=== PATIENT | female | born 1935 | race Caucasian/White ===

== ENCOUNTER 2018-02-21 09:52 | Inpatient (IN) | payer BC, MEDICARE ==
--- NOTE | 2018-02-21 10:18 | ED ---
Altered Mental Status HPI - General Chief Complaint: Altered Mental Status Stated Complaint: confusion Time Seen by Provider: 02/21/18 09:58 Source: patient, family, RN notes reviewed, old records reviewed Mode of arrival: ambulatory Limitations: no limitations - History of Present Illness Initial Comments: This is an 82-year-old female the ER for eversion of altered mental status. Patient is deferring the family for history taking, family states the patient is not been appropriate. States she had a good Thanksgiving for the most part per the family and then towards Became very altered and confused. Patient continues remain the same. 90 fever, she has been recently taking increased doses of antipsychotics and depression medication for dementia versus depression. For the family don't seem to really be helping. Today she is isn' t been herself not answering questions appropriately, patient tries to leave the house without appropriate winter) MD Complaint: altered mental status, confusion -: month(s) Severity: moderate Consistency of Symptoms: waxing and waning, getting worse Context: COPD Associated Symptoms: cough, seizure, shortness of breath, weakness - Related Data Home Medications Medication Instructions Recorded Confirmed Aspirin [Adult Low Dose Aspirin EC] 81 mg PO DAILY 02/11/17 02/21/18 Atorvastatin [Lipitor] 40 mg PO HS 02/21/18 02/21/18 Budesonide [Pulmicort] 0.5 mg INHALATION RT-BID 02/21/18 02/21/18 Cyanocobalamin (Vitamin B-12) 1,000 mcg PO DAILY 02/21/18 02/21/18 [Vitamin B-12] Ipratropium Nebulized [Atrovent 0.5 mg INHALATION RT-Q4H PRN 02/21/18 02/21/18 Nebulized] MORPHINE ORAL GARY 2mg/mL [Morphine 10 mg PO Q6H 02/21/18 02/21/18 Oral Soln 2 MG/ML] Metoprolol Succinate [Toprol XL] 25 mg PO DAILY 02/21/18 02/21/18 QUEtiapine [SEROquel] 100 mg PO QAM 02/21/18 02/21/18 QUEtiapine [SEROquel] 200 mg PO HS 02/21/18 02/21/18 clonazePAM [KlonoPIN] 0.5 mg PO HS 02/21/18 02/21/18 Previous Rx's Medication Instructions Recorded Clopidogrel [Plavix] 75 mg PO DAILY #30 tab 02/04/14 Allergies Allergy/AdvReac Type Severity Reaction Status Date / Time No Known Allergies Allergy Verified 02/21/18 10:32 Review of Systems ROS Statement: Those systems with pertinent positive or pertinent negative responses have been documented in the HPI. ROS Other: All systems not noted in ROS Statement are negative. Past Medical History Past Medical History: Coronary Artery Disease (CAD), Heart Failure, Hearing Disorder / Deafness, Vascular Disorder Additional Past Medical History / Comment(s): varicose veins, poor circulation in legs, PAD. EDEMA RT LOWER LEG, NT IN FEET OCC; USES CANE OCC. USES O2 @ HS , UNSURE OF AMT. History of Any Multi-Drug Resistant Organisms: None Reported Past Surgical History: Appendectomy, Section, Heart Catheterization With Stent, Hysterectomy, Orthopedic Surgery, Tonsillectomy Additional Past Surgical History / Comment(s): left knee surgery. 02-03-14 PTBA, illiac stent X2 placed. Past Anesthesia/Blood Transfusion Reactions: No Reported Reaction Date of Last Stent Placement:: 12-30-13 Past Psychological History: Anxiety Smoking Status: Current every day smoker - Past Family History Sister(s) Family Medical History: Cancer Additional Family Medical History / Comment(s): SISTER PANCREATIC Brother(s) Family Medical History: Cancer Additional Family Medical History / Comment(s): BRAIN General Exam Limitations: altered mental status General appearance: alert, in no apparent distress Head exam: Present: atraumatic, normocephalic, normal inspection Eye exam: Present: normal appearance, PERRL, EOMI. Absent: scleral icterus, conjunctival injection, periorbital swelling ENT exam: Present: normal exam, mucous membranes moist Neck exam: Present: normal inspection. Absent: tenderness, meningismus, lymphadenopathy Respiratory exam: Present: normal lung sounds bilaterally. Absent: respiratory distress, wheezes, rales, rhonchi, stridor Cardiovascular Exam: Present: regular rate, normal rhythm, normal heart sounds. Absent: systolic murmur, diastolic murmur, rubs, gallop, clicks GI/Abdominal exam: Present: soft, normal bowel sounds. Absent: distended, tenderness, guarding, rebound, rigid Extremities exam: Present: normal inspection, full ROM, normal capillary refill. Absent: tenderness, pedal edema, joint swelling, calf tenderness Back exam: Present: normal inspection Neurological exam: Present: alert, oriented X3, CN II-XII intact Psychiatric exam: Present: normal affect, normal mood Skin exam: Present: warm, dry, intact, normal color. Absent: rash Course Vital Signs 02/21/18 02/21/18 02/21/18 09:54 10:30 11:00 Temperature 98.9 F Pulse Rate 102 H 91 Respiratory 26 H 17 16 Rate Blood Pressure 143/79 155/70 137/80 O2 Sat by Pulse 95 97 98 Oximetry 02/21/18 11:30 Temperature Pulse Rate 65 Respiratory 18 Rate Blood Pressure 138/64 O2 Sat by Pulse Oximetry - Reevaluation(s) Reevaluation #1: 02/21/18 12:27 Medical record is reviewed Reevaluation #2: 02/21/18 12:27 Patient has no specific change in symptoms Medical Decision Making - Medical Decision Making 81-year-old female the ER for evaluation of altered mental status, patient comes in for that x-ray appropriately, dementia versus delirium versus depression. Patient will be admitted for neurological and psychiatric evaluation - Lab Data Result diagrams: 02/21/18 10:20 02/21/18 10:20 Lab Results 02/21/18 02/21/18 02/21/18 Range/Units 10:20 10:20 10:20 WBC 6.9 (3.8-10.6) k/uL RBC 3.55 L (3.80-5.40) m/uL Hgb 10.7 L (11.4-16.0) gm/dL Hct 32.9 L (34.0-46.0) % MCV 92.6 (80.0-100.0) fL MCH 30.0 (25.0-35.0) pg MCHC 32.4 (31.0-37.0) g/dL RDW 13.7 (11.5-15.5) % Plt Count 237 (150-450) k/uL Neutrophils % 71 % Lymphocytes % 17 % Monocytes % 5 % Eosinophils % 3 % Basophils % 1 % Neutrophils # 4.9 (1.3-7.7) k/uL Lymphocytes # 1.1 (1.0-4.8) k/uL Monocytes # 0.4 (0-1.0) k/uL Eosinophils # 0.2 (0-0.7) k/uL Basophils # 0.0 (0-0.2) k/uL PT (9.0-12.0) sec INR (<1.2) APTT (22.0-30.0) sec Sodium (137-145) mmol/L Potassium (3.5-5.1) mmol/L Chloride (98-107) mmol/L Carbon Dioxide (22-30) mmol/L Anion Gap mmol/L BUN (7-17) mg/dL Creatinine (0.52-1.04) mg/dL Est GFR (CKD-EPI)AfAm (>60 ml/min/1.73 sqM) Est GFR (CKD-EPI)NonAf (>60 ml/min/1.73 sqM) Glucose (74-99) mg/dL POC Glucose (mg/dL) (75-99) mg/dL POC Glu Deep Submergence Vehicle Operator ID Calcium (8.4-10.2) mg/dL Total Bilirubin (0.2-1.3) mg/dL AST (14-36) U/L ALT (9-52) U/L Alkaline Phosphatase (38-126) U/L Ammonia <9 (<30) umol/L Total Creatine Kinase 77 (30-135) U/L CK-MB (CK-2) 1.3 (0.0-2.4) ng/mL CK-MB (CK-2) Rel Index 1.7 Troponin I 0.013 (0.000-0.034) ng/mL Total Protein (6.3-8.2) g/dL Albumin (3.5-5.0) g/dL Urine Color Urine Appearance (Clear) Urine pH (5.0-8.0) Ur Specific [place] (1.001-1.035) Urine Protein (Negative) Urine Glucose (UA) (Negative) Urine Ketones (Negative) Urine Blood (Negative) Urine Nitrite (Negative) Urine Bilirubin (Negative) Urine Urobilinogen (<2.0) mg/dL Ur Leukocyte Esterase (Negative) Urine Opiates Screen (NotDetected) Ur Oxycodone Screen (NotDetected) Urine Methadone Screen (NotDetected) Ur Propoxyphene Screen (NotDetected) Ur Barbiturates Screen (NotDetected) U Tricyclic Antidepress (NotDetected) Ur Phencyclidine Scrn (NotDetected) Ur Amphetamines Screen (NotDetected) U Methamphetamines Scrn (NotDetected) U Benzodiazepines Scrn (NotDetected) Urine Cocaine Screen (NotDetected) U Marijuana (THC) Screen (NotDetected) 02/21/18 02/21/18 02/21/18 Range/Units 10:20 10:20 10:44 WBC (3.8-10.6) k/uL RBC (3.80-5.40) m/uL Hgb (11.4-16.0) gm/dL Hct (34.0-46.0) % MCV (80.0-100.0) fL MCH (25.0-35.0) pg MCHC (31.0-37.0) g/dL RDW (11.5-15.5) % Plt Count (150-450) k/uL Neutrophils % % Lymphocytes % % Monocytes % % Eosinophils % % Basophils % % Neutrophils # (1.3-7.7) k/uL Lymphocytes # (1.0-4.8) k/uL Monocytes # (0-1.0) k/uL Eosinophils # (0-0.7) k/uL Basophils # (0-0.2) k/uL PT 10.0 (9.0-12.0) sec INR 1.0 (<1.2) APTT 21.5 L (22.0-30.0) sec Sodium 134 L (137-145) mmol/L Potassium 3.8 (3.5-5.1) mmol/L Chloride 96 L (98-107) mmol/L Carbon Dioxide 31 H (22-30) mmol/L Anion Gap 7 mmol/L BUN 13 (7-17) mg/dL Creatinine 0.77 (0.52-1.04) mg/dL Est GFR (CKD-EPI)AfAm 84 (>60 ml/min/1.73 sqM) Est GFR (CKD-EPI)NonAf 73 (>60 ml/min/1.73 sqM) Glucose 113 H (74-99) mg/dL POC Glucose (mg/dL) (75-99) mg/dL POC Glu Deep Submergence Vehicle Operator ID Calcium 9.7 (8.4-10.2) mg/dL Total Bilirubin 0.8 (0.2-1.3) mg/dL AST 27 (14-36) U/L ALT 26 (9-52) U/L Alkaline Phosphatase 98 (38-126) U/L Ammonia (<30) umol/L Total Creatine Kinase (30-135) U/L CK-MB (CK-2) (0.0-2.4) ng/mL CK-MB (CK-2) Rel Index Troponin I (0.000-0.034) ng/mL Total Protein 6.3 (6.3-8.2) g/dL Albumin 3.6 (3.5-5.0) g/dL Urine Color Yellow Urine Appearance Clear (Clear) Urine pH 7.0 (5.0-8.0) Ur Specific [place] 1.007 (1.001-1.035) Urine Protein Negative (Negative) Urine Glucose (UA) Negative (Negative) Urine Ketones Negative (Negative) Urine Blood Negative (Negative) Urine Nitrite Negative (Negative) Urine Bilirubin Negative (Negative) Urine Urobilinogen <2.0 (<2.0) mg/dL Ur Leukocyte Esterase Negative (Negative) Urine Opiates Screen Detected H (NotDetected) Ur Oxycodone Screen Not Detected (NotDetected) Urine Methadone Screen Not Detected (NotDetected) Ur Propoxyphene Screen Not Detected (NotDetected) Ur Barbiturates Screen Not Detected (NotDetected) U Tricyclic Antidepress Detected H (NotDetected) Ur Phencyclidine Scrn Not Detected (NotDetected) Ur Amphetamines Screen Not Detected (NotDetected) U Methamphetamines Scrn Not Detected (NotDetected) U Benzodiazepines Scrn Not Detected (NotDetected) Urine Cocaine Screen Not Detected (NotDetected) U Marijuana (THC) Screen Not Detected (NotDetected) 02/21/18 Range/Units 10:50 WBC (3.8-10.6) k/uL RBC (3.80-5.40) m/uL Hgb (11.4-16.0) gm/dL Hct (34.0-46.0) % MCV (80.0-100.0) fL MCH (25.0-35.0) pg MCHC (31.0-37.0) g/dL RDW (11.5-15.5) % Plt Count (150-450) k/uL Neutrophils % % Lymphocytes % % Monocytes % % Eosinophils % % Basophils % % Neutrophils # (1.3-7.7) k/uL Lymphocytes # (1.0-4.8) k/uL Monocytes # (0-1.0) k/uL Eosinophils # (0-0.7) k/uL Basophils # (0-0.2) k/uL PT (9.0-12.0) sec INR (<1.2) APTT (22.0-30.0) sec Sodium (137-145) mmol/L Potassium (3.5-5.1) mmol/L Chloride (98-107) mmol/L Carbon Dioxide (22-30) mmol/L Anion Gap mmol/L BUN (7-17) mg/dL Creatinine (0.52-1.04) mg/dL Est GFR (CKD-EPI)AfAm (>60 ml/min/1.73 sqM) Est GFR (CKD-EPI)NonAf (>60 ml/min/1.73 sqM) Glucose (74-99) mg/dL POC Glucose (mg/dL) 125 H (75-99) mg/dL POC Glu Deep Submergence Vehicle Operator ID Caprice Mendez Calcium (8.4-10.2) mg/dL Total Bilirubin (0.2-1.3) mg/dL AST (14-36) U/L ALT (9-52) U/L Alkaline Phosphatase (38-126) U/L Ammonia (<30) umol/L Total Creatine Kinase (30-135) U/L CK-MB (CK-2) (0.0-2.4) ng/mL CK-MB (CK-2) Rel Index Troponin I (0.000-0.034) ng/mL Total Protein (6.3-8.2) g/dL Albumin (3.5-5.0) g/dL Urine Color Urine Appearance (Clear) Urine pH (5.0-8.0) Ur Specific [place] (1.001-1.035) Urine Protein (Negative) Urine Glucose (UA) (Negative) Urine Ketones (Negative) Urine Blood (Negative) Urine Nitrite (Negative) Urine Bilirubin (Negative) Urine Urobilinogen (<2.0) mg/dL Ur Leukocyte Esterase (Negative) Urine Opiates Screen (NotDetected) Ur Oxycodone Screen (NotDetected) Urine Methadone Screen (NotDetected) Ur Propoxyphene Screen (NotDetected) Ur Barbiturates Screen (NotDetected) U Tricyclic Antidepress (NotDetected) Ur Phencyclidine Scrn (NotDetected) Ur Amphetamines Screen (NotDetected) U Methamphetamines Scrn (NotDetected) U Benzodiazepines Scrn (NotDetected) Urine Cocaine Screen (NotDetected) U Marijuana (THC) Screen (NotDetected) - EKG Data -: EKG Interpreted by Me (EKG shows sinus rhythm rate of 87, ND 180, QRS 60, QTc 441) - Radiology Data Radiology results: report reviewed (CT brain chest x-rays negative), image reviewed Disposition Clinical Impression: Altered mental status, Delirium due to general medical condition Disposition: ADMITTED IP TO THIS [facility] Condition: Fair Instructions: Altered Mental Status (ED) Is patient prescribed a controlled substance at d/c from ED?: No Referrals: Hanny Lopez MD [Primary Care Provider] - 1-2 days
[2018-02-21 10:43] LABS: Basophils % (A) 1 %; Eosinophils # (A) 0.2 k/uL (0-0.7); Eosinophils % (A) 3 %; HCT 32.9 % (34.0-46.0); HGB 10.7 gm/dL (11.4-16.0); Lymphocytes # (A) 1.1 k/uL (1.0-4.8); Lymphocytes % (A) 17 %; MCHC 32.4 g/dL (31.0-37.0); MCV 92.6 fL (80.0-100.0); Mean Platelet Volume 6.2; Monocytes # (A) 0.4 k/uL (0-1.0); Monocytes % (A) 5 %; Neutrophils # (A) 4.9 k/uL (1.3-7.7); Neutrophils % (A) 71 %; Platelet Count 237 k/uL (150-450); RBC 3.55 m/uL (3.80-5.40); RDW 13.7 % (11.5-15.5); WBC 6.9 k/uL (3.8-10.6)
[2018-02-21 11:00] LABS: Appearance,Urine Clear (Clear); Bilirubin,Urine Negative (Negative); Blood,Urine Negative (Negative); Color,Urine Yellow; Glucose,Urine (UA) Negative (Negative); Ketones,Urine Negative (Negative); Leukocyte Esterase,Urine Negative (Negative); Nitrite,Urine Negative (Negative); Protein,Urine Negative (Negative); Specific Gravity,Urine 1.007 (1.001-1.035); Urobilinogen,Urine <2.0 mg/dL (<2.0)
[2018-02-21 11:00] LABS: Albumin 3.6 g/dL (3.5-5.0); Calcium 9.7 mg/dL (8.4-10.2); Potassium 3.8 mmol/L (3.5-5.1); Total Bilirubin 0.8 mg/dL (0.2-1.3); Total Protein 6.3 g/dL (6.3-8.2)
[2018-02-21 11:09] LABS: Partial Thromboplastin Time 21.5 sec (22.0-30.0)
[2018-02-21 11:10] LABS: Glucose,Whole Blood 125 mg/dL (75-99)
[2018-02-21 11:16] LABS: Phencyclidine Screen,Urine Not Detected (NotDetected); Urn Cannabinoid Scrn Not Detected (NotDetected)
[2018-02-21 11:17] LABS: Amphetamine Screen,Urine Not Detected (NotDetected); Barbiturate Screen,Urine Not Detected (NotDetected); Benzodiazepines Screen,Urine Not Detected (NotDetected); Cocaine Screen,Urine Not Detected (NotDetected); Methadone Screen, Urine Not Detected (NotDetected); Opiate Screen,Urine Detected (NotDetected); Oxycodone Screen, Urine Not Detected (NotDetected); Tricyclic Antidepressant,Urine Detected (NotDetected)
[2018-02-21 11:21] LABS: Creatine Kinase MB 1.3 ng/mL (0.0-2.4); Troponin I 0.013 ng/mL (0.000-0.034)
--- NOTE | 2018-02-21 12:05 | CT ---
EXAMINATION TYPE: CT brain wo con DATE OF EXAM: 02/21/2018 COMPARISON: None HISTORY: Confusion. Altered mental status. CT DLP: 1042.4 mGycm Automated exposure control for dose reduction was used. TECHNIQUE: CT scan of the head is performed without contrast. FINDINGS: There is no acute intracranial hemorrhage or midline shift identified. There is diffuse v entricular and sulcal prominence consistent with diffuse age-related cerebral atrophy. Leftward nasa l septal deviation is mild an incidentally seen. Osseous demineralization of the calvarium is noted. There is low-attenuation in the periventricular white matter consistent with chronic small vessel isc hemic change. The globes are intact and the visualized sinuses are clear. IMPRESSION: No acute intracranial hemorrhage or midline shift. There is age-related cerebral atroph y and chronic small vessel ischemic change, likely on the basis of chronic microangiopathy.
--- NOTE | 2018-02-21 12:13 | XR ---
EXAMINATION TYPE: XR chest 2V DATE OF EXAM: 02/21/2018 COMPARISON: None INDICATION: Altered mental status TECHNIQUE: Frontal and lateral views of the chest are obtained. FINDINGS: The heart size is normal. The pulmonary vasculature is normal. The lungs are clear. There is hyperinflation flattening the diaphragms compatible COPD. IMPRESSION: 1. No acute pulmonary process. 2. COPD
[2018-02-21] MEDS ORDERED: SODIUM CHLORIDE 0.9% 1,000 ML IV SCH ×2 (12:30→16:15)
[2018-02-21] MEDS: HYDROcodone/APAP 5-325MG 1 EACH TAB PO PRN ×2 (16:42→23:38)
--- NOTE | 2018-02-21 16:46 | US ---
EXAMINATION TYPE: US venous doppler duplex LE RT DATE OF EXAM: 02/21/2018 4:30 PM COMPARISON: NONE CLINICAL HISTORY: Rule out DVT Right leg. Right leg swelling and redness. SIDE PERFORMED: Right TECHNIQUE: The lower extremity deep venous system is examined utilizing real time linear array sonog justin with graded compression, doppler sonography and color-flow sonography. VESSELS IMAGED: External Iliac Vein (EIV) Common Femoral Vein Deep Femoral Vein Greater Saphenous Vein * Femoral Vein Popliteal Vein Small Saphenous Vein * Proximal Calf Veins (* superficial vessels) Right Leg: Negative for DVT Grayscale, color doppler, spectral doppler imaging performed of the deep veins of the right lower ext remity. There is normal flow, compressibility, vascular waveforms. IMPRESSION: No ultrasound evidence for acute DVT in the right lower extremity.
[2018-02-21] MEDS: FUROSEMIDE 10 MG/ML 4 ML VIAL IV SCH (16:51)
--- NOTE | 2018-02-21 18:52 | P.HPIM ---
History of Present Illness H&P Date: 02/21/18 Chief Complaint: Shortness of breath, mental status changes This is an 82-year-old pleasant lady patient of Dr. Lopez. She has underlying history of CAD post-PCI, hypertension, hypertensive cardio vascular disease, PAD chronic lymphedema peripheral neuropathy, admitted to the hospital secondary to increasing mental status changes, along with weakness, cellulitis of bilateral lower extrem. She was last admitted at [facility] on November 2017, for which seen by infectious disease pulmonary neurology at that time, she did receive some home health care needs at that time. Patient was brought in from home and was evaluated in the emergency room secondary to increasing confusion, increasing shortness of breath, minimal coughing, redness in the lower extremities, patient was slightly more delirious , and agitated, ER was concerned more about the mental status changes neurology was consulted consulted, psychiatry is also consulted as the family is worried about underlying psychosis against delirium and this has been a recurrent problem, over the past several years. During the last admission, November 2017 , patient was started on Desyrel 150 mg at bedtime, oral tapering dose, Lasix and Aldactone, Singulair and Pepcid. Patient also had chronic respiratory. Last TSH was 0.04 December 2017, hemoglobin 10.4, creatinine 0.8 insufficiency with significant right lower leg cellulitis on top of her lymphedema which is chronic. Review of Systems ROS unobtainable: due to mental status Constitutional: Reports as per HPI, Reports weight gain, Denies anorexia, Denies chills, Denies chronic headaches, Denies chronic pain, Denies daytime sleepiness, Denies fatigue, Denies fever, Denies lethargy, Denies malaise, Denies night sweats, Denies poor appetite, Denies sweats, Denies weakness, Denies weight loss Ears, nose, mouth and throat: Reports as per HPI Cardiovascular: Reports as per HPI, Reports shortness of breath, Denies chest pain, Denies claudication, Denies decreased exercise tolerance, Denies dyspnea on exertion, Denies edema, Denies high blood pressure, Denies irregular heart beat, Denies leg edema, Denies lightheadedness, Denies orthopnea, Denies palpitations, Denies paroxysmal nocturnal dyspnea, Denies phlebitis, Denies rapid heart beat, Denies syncope Respiratory: Reports as per HPI, Denies congestion, Denies cough, Denies cough with sputum, Denies dyspnea, Denies excessive sputum, Denies hemoptysis, Denies home oxygen, Denies pain, Denies pain on inspiration, Denies pleurisy, Denies respiratory infections, Denies sleep apnea, Denies snoring, Denies wheezing Gastrointestinal: Reports as per HPI Genitourinary: Reports as per HPI Menstruation: Reports as per HPI, Denies amenorrhea, Denies amenorrhea on BC, Denies currently menstrual, Denies cycle < 21 days, Denies cycle > 35 days, Denies cycle variable, Denies menses 1-7 days, Denies menses 8 or > days, Denies menses variable, Denies period heavy, Denies period light, Denies period normal, Denies period spotting, Denies post hysterectomy, Denies postmenopausal , Denies premenarcheal Musculoskeletal: Reports as per HPI, Reports gait dysfunction, Reports leg numbness/tingling, Reports limitation of motion, Reports low back pain, Reports muscle cramps, Reports muscle weakness, Reports shooting leg pain Integumentary: Reports as per HPI, Denies acne, Denies boils, Denies brittle nails, Denies change in hair/nails, Denies color changes, Denies darkening of skin, Denies depigmentation, Denies dryness, Denies foot/leg ulcers, Denies growths, Denies hirsutism, Denies lesions, Denies onychomycosis, Denies pruritus , Denies rash, Denies sores, Denies striae, Denies unusual bruising, Denies wounds Neurological: Reports as per HPI Psychiatric: Reports as per HPI, Reports anxiety, Reports confusion, Reports depression, Reports difficulty concentrating, Reports hypersomnia, Reports insomnia, Reports irritability, Reports memory loss, Reports sleep disturbances , Denies anhedonia, Denies anxiety attacks, Denies change in appetite, Denies change in libido, Denies change in sleep habits, Denies disorientation, Denies hallucinations, Denies hopelessness, Denies mood swings, Denies paranoia, Denies sadness/tearfulness, Denies suicidal ideation Endocrine: Reports as per HPI Hematologic/Lymphatic: Reports as per HPI, Denies easy bleeding, Denies easy bruising, Denies lymphadenopathy, Denies lymphedema, Denies thrombophilia Allergic/Immunologic: Reports as per HPI, Denies allergic rhinitis, Denies anaphylaxis, Denies angioedema, Denies gluten intolerance, Denies persistent infections, Denies seasonal allergies, Denies urticaria, Denies wheezing Past Medical History Past Medical History: Coronary Artery Disease (CAD), Heart Failure, Hearing Disorder / Deafness, Hyperlipidemia, Hypertension, Vascular Disorder Additional Past Medical History / Comment(s): Home oxygen ATC, PAD, intermittent claudication bilateral legs, chronic edema R leg and occasionally in L leg, some numbness/tingling bilateral feet, [place] bilaterally. History of Any Multi-Drug Resistant Organisms: None Reported Past Surgical History: Appendectomy, Section, Heart Catheterization, Heart Catheterization With Stent, Hysterectomy, Orthopedic Surgery, Tonsillectomy Additional Past Surgical History / Comment(s): PCI with stent, 2013 PTBA/iliac stents R/L common iliacs, AO with runoffs, L knee arthroscopy, colonoscopy, Past Anesthesia/Blood Transfusion Reactions: No Reported Reaction Date of Last Stent Placement:: 12-30-13 Smoking Status: Current every day smoker Additional History: Patient has 8 siblings for alive, 6 children 2 with asthma one with recent CAD and stent - Past Family History Sister(s) Family Medical History: Cancer (Pancreatic cancer breast cancer) Additional Family Medical History / Comment(s): SISTER PANCREATIC Brother(s) Family Medical History: Cancer Additional Family Medical History / Comment(s): Pt had 2 brothers with cancer. Mother Family Medical History: Coronary Artery Disease (CAD), Vascular Disorder Father Family Medical History: Diabetes Mellitus Medications and Allergies Home Medications Medication Instructions Recorded Confirmed Type Clopidogrel [Plavix] 75 mg PO DAILY #30 tab 02/04/14 02/21/18 Rx Aspirin [Adult Low Dose Aspirin EC] 81 mg PO DAILY 02/11/17 02/21/18 History Atorvastatin [Lipitor] 40 mg PO HS 02/21/18 02/21/18 History Budesonide [Pulmicort] 0.5 mg INHALATION RT-BID 02/21/18 02/21/18 History Cyanocobalamin (Vitamin B-12) 1,000 mcg PO DAILY 02/21/18 02/21/18 History [Vitamin B-12] Ipratropium Nebulized [Atrovent 0.5 mg INHALATION RT-Q4H PRN 02/21/18 02/21/18 History Nebulized] MORPHINE ORAL GARY 2mg/mL [Morphine 10 mg PO Q6H 02/21/18 02/21/18 History Oral Soln 2 MG/ML] Metoprolol Succinate [Toprol XL] 25 mg PO DAILY 02/21/18 02/21/18 History QUEtiapine [SEROquel] 100 mg PO QAM 02/21/18 02/21/18 History QUEtiapine [SEROquel] 200 mg PO HS 02/21/18 02/21/18 History clonazePAM [KlonoPIN] 0.5 mg PO HS 02/21/18 02/21/18 History Allergies Allergy/AdvReac Type Severity Reaction Status Date / Time No Known Allergies Allergy Verified 02/21/18 10:32 Physical Exam Vitals: Vital Signs Temp Pulse Pulse Resp BP BP Pulse Ox 02/21/18 16:00 16 02/21/18 15:40 98.0 F 108 H 16 169/78 94 L 02/21/18 13:30 95 17 124/78 02/21/18 13:00 96 17 129/66 02/21/18 12:30 95 18 117/100 97 02/21/18 11:30 65 18 138/64 02/21/18 11:00 91 16 137/80 98 02/21/18 10:30 17 155/70 97 02/21/18 09:54 98.9 F 102 H 26 H 143/79 95 Intake and Output 02/21/18 02/21/18 02/21/18 06:59 14:59 22:59 Other: Voiding Method Toilet Weight 77.111 kg - Constitutional General appearance: average body habitus, cooperative, no acute distress - EENT Eyes: anicteric sclerae, PERRLA, dentition normal ENT: NA/AT, normal oropharynx - Neck Neck: normal ROM Thyroid: bilateral: normal size - Respiratory Respiratory: bilateral: CTA, diminished, negative: dullness, rales, rhonchi - Cardiovascular Rhythm: regular Abnormal Heart Sounds: systolic murmur leg Peripheral Edema: bilateral: 3+ - Gastrointestinal General gastrointestinal: soft - Integumentary Integumentary: decreased turgor, normal - Neurologic Neurologic: CNII-XII intact - Musculoskeletal Musculoskeletal: generalized weakness, strength equal bilaterally Results CBC & Chem 7: 02/21/18 10:20 02/21/18 10:20 Labs: Abnormal Lab Results - Last 24 Hours (Table) 02/21/18 02/21/18 02/21/18 Range/Units 10:20 10:20 10:20 RBC 3.55 L (3.80-5.40) m/uL Hgb 10.7 L (11.4-16.0) gm/dL Hct 32.9 L (34.0-46.0) % APTT 21.5 L (22.0-30.0) sec Sodium 134 L (137-145) mmol/L Chloride 96 L (98-107) mmol/L Carbon Dioxide 31 H (22-30) mmol/L Glucose 113 H (74-99) mg/dL POC Glucose (mg/dL) (75-99) mg/dL Urine Opiates Screen (NotDetected) U Tricyclic Antidepress (NotDetected) 02/21/18 02/21/18 Range/Units 10:44 10:50 RBC (3.80-5.40) m/uL Hgb (11.4-16.0) gm/dL Hct (34.0-46.0) % APTT (22.0-30.0) sec Sodium (137-145) mmol/L Chloride (98-107) mmol/L Carbon Dioxide (22-30) mmol/L Glucose (74-99) mg/dL POC Glucose (mg/dL) 125 H (75-99) mg/dL Urine Opiates Screen Detected H (NotDetected) U Tricyclic Antidepress Detected H (NotDetected) Microbiology - Last 24 Hours (Table) 02/21/18 10:43 Urine Culture - Preliminary Urine,Catheterized Laboratory Results WBC 6.9 k/uL (3.8-10.6) 02/21/18 10:20 RBC 3.55 m/uL (3.80-5.40) L 02/21/18 10:20 Hgb 10.7 gm/dL (11.4-16.0) L 02/21/18 10:20 Hct 32.9 % (34.0-46.0) L 02/21/18 10:20 MCV 92.6 fL (80.0-100.0) 02/21/18 10:20 MCH 30.0 pg (25.0-35.0) 02/21/18 10:20 MCHC 32.4 g/dL (31.0-37.0) 02/21/18 10:20 RDW 13.7 % (11.5-15.5) 02/21/18 10:20 Plt Count 237 k/uL (150-450) 02/21/18 10:20 Neutrophils % 71 % 02/21/18 10:20 Lymphocytes % 17 % 02/21/18 10:20 Monocytes % 5 % 02/21/18 10:20 Eosinophils % 3 % 02/21/18 10:20 Basophils % 1 % 02/21/18 10:20 Neutrophils # 4.9 k/uL (1.3-7.7) 02/21/18 10:20 Lymphocytes # 1.1 k/uL (1.0-4.8) 02/21/18 10:20 Monocytes # 0.4 k/uL (0-1.0) 02/21/18 10:20 Eosinophils # 0.2 k/uL (0-0.7) 02/21/18 10:20 Basophils # 0.0 k/uL (0-0.2) 02/21/18 10:20 PT 10.0 sec (9.0-12.0) 02/21/18 10:20 INR 1.0 (<1.2) 02/21/18 10:20 APTT 21.5 sec (22.0-30.0) L 02/21/18 10:20 Sodium 134 mmol/L (137-145) L 02/21/18 10:20 Potassium 3.8 mmol/L (3.5-5.1) 02/21/18 10:20 Chloride 96 mmol/L (98-107) L 02/21/18 10:20 Carbon Dioxide 31 mmol/L (22-30) H 02/21/18 10:20 Anion Gap 7 mmol/L 02/21/18 10:20 BUN 13 mg/dL (7-17) 02/21/18 10:20 Creatinine 0.77 mg/dL (0.52-1.04) 02/21/18 10:20 Est GFR (CKD-EPI)AfAm 84 (>60 ml/min/1.73 sqM) 02/21/18 10:20 Est GFR (CKD-EPI)NonAf 73 (>60 ml/min/1.73 sqM) 02/21/18 10:20 Glucose 113 mg/dL (74-99) H 02/21/18 10:20 POC Glucose (mg/dL) 125 mg/dL (75-99) H 02/21/18 10:50 POC Glu Ecological Economist Caprice Rajput 02/21/18 10:50 Calcium 9.7 mg/dL (8.4-10.2) 02/21/18 10:20 Total Bilirubin 0.8 mg/dL (0.2-1.3) 02/21/18 10:20 AST 27 U/L (14-36) 02/21/18 10:20 ALT 26 U/L (9-52) 02/21/18 10:20 Alkaline Phosphatase 98 U/L (38-126) 02/21/18 10:20 Ammonia <9 umol/L (<30) 02/21/18 10:20 Total Creatine Kinase 77 U/L (30-135) 02/21/18 10:20 CK-MB (CK-2) 1.3 ng/mL (0.0-2.4) 02/21/18 10:20 CK-MB (CK-2) Rel Index 1.7 02/21/18 10:20 Troponin I 0.013 ng/mL (0.000-0.034) 02/21/18 10:20 Total Protein 6.3 g/dL (6.3-8.2) 02/21/18 10:20 Albumin 3.6 g/dL (3.5-5.0) 02/21/18 10:20 Urine Color Yellow 02/21/18 10:44 Urine Appearance Clear (Clear) 02/21/18 10:44 Urine pH 7.0 (5.0-8.0) 02/21/18 10:44 Ur Specific [place] 1.007 (1.001-1.035) 02/21/18 10:44 Urine Protein Negative (Negative) 02/21/18 10:44 Urine Glucose (UA) Negative (Negative) 02/21/18 10:44 Urine Ketones Negative (Negative) 02/21/18 10:44 Urine Blood Negative (Negative) 02/21/18 10:44 Urine Nitrite Negative (Negative) 02/21/18 10:44 Urine Bilirubin Negative (Negative) 02/21/18 10:44 Urine Urobilinogen <2.0 mg/dL (<2.0) 02/21/18 10:44 Ur Leukocyte Esterase Negative (Negative) 02/21/18 10:44 Urine Opiates Screen Detected (NotDetected) H 02/21/18 10:44 Ur Oxycodone Screen Not Detected (NotDetected) 02/21/18 10:44 Urine Methadone Screen Not Detected (NotDetected) 02/21/18 10:44 Ur Propoxyphene Screen Not Detected (NotDetected) 02/21/18 10:44 Ur Barbiturates Screen Not Detected (NotDetected) 02/21/18 10:44 U Tricyclic Antidepress Detected (NotDetected) H 02/21/18 10:44 Ur Phencyclidine Scrn Not Detected (NotDetected) 02/21/18 10:44 Ur Amphetamines Screen Not Detected (NotDetected) 02/21/18 10:44 U Methamphetamines Scrn Not Detected (NotDetected) 02/21/18 10:44 U Benzodiazepines Scrn Not Detected (NotDetected) 02/21/18 10:44 Urine Cocaine Screen Not Detected (NotDetected) 02/21/18 10:44 U Marijuana (THC) Screen Not Detected (NotDetected) 02/21/18 10:44 Thrombosis Risk Factor Assmnt - DVT/VTE Prophylaxis DVT/VTE Prophylaxis: Pharmacologic Prophylaxis ordered, Mechanical Prophylaxis ordered - Choose All That Apply Any of the Below Risk Factors Present?: Yes Each Factor Represents 1 point: Abnormal pulmonary function (COPD), Obesity ( BMI >25), Serious lung disease incl. pneumonia (< 1month) Other Risk Factors: Yes Each Risk Factor Represents 3 Points: Age 75 years or older Other congenital or acquired thrombophilia - If yes, enter type in comment: No Thrombosis Risk Factor Assessment Total Risk Factor Score: 6 Thrombosis Risk Factor Assessment Level: High Risk Assessment and Plan Plan: 1. Right more than left lower extremity cellulitis, with increasing lower extremity edema, diastolic CHF, has recurrent edema to the legs, patient was supposed to be on diuretics, and none is noted on admission, IV Lasix 40 mg every 8 hours, potassium supplementation, Doppler to the lower extremity is requested to rule out DVT #2 chronic diastolic CHF, IV Lasix, will try to obtain echo at [facility] 11/2017 #3, CAD with prior PCI, on aspirin and Plavix Toprol-XL, Lipitor 40 #4 Recurrent hypercarbic respiratory failure secondary to COPD, underlying sleep apnea cannot be ruled out, follow with Dr. Rivero as an outpatient, #5 CK D stage III is lying creatinine 1.1, avoid nephrotoxins #6 Impaired glucose tolerance, hemoglobin A1c will be obtained #7 PAD, chronic pain with chronic morphine use on morphine at home 10 mg every 6 hours, #8 Neuropathy, not on neuropathic pain medication except for pain control using morphine #9 Tobacco use with nicotine-induced disorder #10 Hyperlipidemia on Lipitor 40 #11 Chronic anemia, from nutrition and I deficiency/anemia of chronic disease #12 Neurocognitive deficits with behaviors, also has chronic sleep disorder, is entertained, cannot be ruled out, on Seroquel 200 mg at bedtime and 100 mg every morning, psychiatry to see for initial evaluation, also requires clonazepam 0.5 mg at bedtime, patient was on trazodone during the last admission at [facility], and currently has been discontinued prior to admission. 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
--- NOTE | 2018-02-21 19:03 | P.CN ---
Psychiatric Consult - . Consult date: 02/21/18 Consult:: 02/21/18 18:52 Chief Complaint : Altered mental status HPI : Ms. Butler is 82 yo female with h/o mood disorder and anxiety disorder admitted here secondary to worsening agitation and confusion. Patient is in moderate distress. She is very anxious and oriented to place and person. She at times answer correctly. She gives clasi picture of delirium with waxing and waning pattern of alertness. According to family she has long h/o mood swings and periods of psychoses, but never seen by psychiatrist or treated properly. Recently she was started on seroquel due to worsening behaviors and insomnia. Seroquel has not been helping much. She also has some gradual memory impairments. PPH : Mood Disorder MSE : Alert, awake oriented X 2. Fair eye contact. Very anxious and in moderate distress. Speech soft tone rapid. Mood anxious with congruent affect. Denies any suicidal ideation. Denies hearing any voices or seeing things. Poor inisght and poor judgment. A/P Delirium secondary to multiple etiologies( Electrolyte, Metabolic, Infection , PE from DVT, Benzos withdrawals) Bipolar Disorder Panic Disorder Patient is very anxious and in moderate distress. She used to take high doses of xanax and klonopin in past. Benzos withdrawals can give you worsening psychoses and rebound anxiety. Her mental status will improve, once underlying reasons of Delirium corrected. Neurology and Cardiology on board. Will start her on Ativan 0.5 mg po QID and Haldol 1 mg po QID. Will use Zyprexa Zydis 5 mg S/L Q 6 hrly PRN for agitation. Psychiatry will follow.
[2018-02-21] MEDS: BUDESONIDE 0.5 MG/2 ML NEBU INHALATION SCH (20:42)
[2018-02-21] MEDS ORDERED: clonazePAM 0.5 MG TAB PO SCH (21:00)
[2018-02-21] MEDS ORDERED: QUEtiapine 100 MG TAB PO SCH (21:00)
[2018-02-21] MEDS: ATORVASTATIN 40 MG TAB PO SCH (21:37)
[2018-02-21] MEDS: POTASSIUM CHLORIDE ER 20 MEQ TAB.ER PO SCH ×2 (23:20→23:53)
[2018-02-21] MEDS: HALOPERIDOL 0.5 MG TAB PO SCH (23:20)
[2018-02-21] MEDS: LORazepam 0.5 MG TAB PO SCH (23:53)
[2018-02-22] MEDS: FUROSEMIDE 10 MG/ML 4 ML VIAL IV SCH ×2 (01:37→09:16)
[2018-02-22] MEDS: IPRATROPIUM 0.5 MG/2.5 ML NEBU INHALATION PRN ×4 (02:12→20:57)
[2018-02-22] MEDS: BUDESONIDE 0.5 MG/2 ML NEBU INHALATION SCH ×2 (08:34→20:57)
[2018-02-22] MEDS ORDERED: QUEtiapine 100 MG TAB PO SCH ×2 (09:00→21:00)
--- NOTE | 2018-02-22 09:10 | US ---
EXAMINATION TYPE: US carotid duplex BILAT DATE OF EXAM: 02/22/2018 COMPARISON: NONE CLINICAL HISTORY: AMS. EXAM MEASUREMENTS: RIGHT: Peak Systolic Velocity (PSV) cm/sec ----- Right CCA: 75.5 ----- Right ICA: 68.8 ----- Right ECA: 98.3 ICA/CCA ratio: 0.9 RIGHT: End Diastole cm/sec ----- Right CCA: 11.6 ----- Right ICA: 15.6 ----- Right ECA: 7.7 LEFT: Peak Systolic Velocity (PSV) cm/sec ----- Left CCA: 55.9 ----- Left ICA: 125.2 ----- Left ECA: 69.8 ICA/CCA ratio: 2.2 LEFT: End Diastole cm/sec ----- Left CCA: 17.5 ----- Left ICA: 20.7 ----- Left ECA: 11.5 VERTEBRALS (direction of flow): Right Vertebral: Antegrade Left Vertebral: Antegrade Rhythm: Arrhythmia as seem in image 21 Extremely difficult and limited exam due to patient movement and inability to turn her head. Mild dinah unt of plaque visualized bilateral bulbs. IMPRESSION: Suboptimal study with mild to moderate plaque bilaterally, cannot exclude mild stenosis near 50% in the proximal left internal carotid artery. Underlying arrhythmia is noted. If this is n ot known finding further investigation with cardiac Holter monitoring would be advised. Criteria for Assigning % of Stenosis / Diameter reduction (Estimation based on the indirect measurements of the internal carotid artery velocities (ICA PSV). 1. Normal (no stenosis)=ICA PSV < 125 cm/s: ratio < 2.0: ICA EDV<40 cm/s. 2. Less than 50% stenosis=ICA PSV < 125 cm/s: ratio < 2.0: ICA EDV<40 cm/s. 3. 50 to 69% stenosis=ICA PSV of 125 to 230 cm/s: ration 2.0 ? 4.0: ICA EDV 40-100 cm/s. 4. Greater than 70% stenosis to near occlusion= ICA PSV > 230 cm/s: ratio > 4.0: ICA EDV > 100 cm/s. 5. Near occlusion= ICA PSV velocities may be low or undetectable: variable ratio and ICA EDV. 6. Total occlusion=unable to detect flow.
[2018-02-22] MEDS: METOPROLOL SUCCINATE (ER) 25 MG TAB.ER.24H PO SCH (09:16)
[2018-02-22] MEDS: POTASSIUM CHLORIDE ER 20 MEQ TAB.ER PO SCH ×2 (09:16→20:16)
[2018-02-22] MEDS: CYANOCOBALAMIN 500 MCG TAB PO SCH (09:16)
[2018-02-22] MEDS: CLOPIDOGREL 75 MG TAB PO SCH (09:16)
[2018-02-22] MEDS: ASPIRIN 81 MG PO SCH (09:16)
[2018-02-22] MEDS: HYDROcodone/APAP 5-325MG 1 EACH TAB PO PRN (09:16)
[2018-02-22] MEDS: HALOPERIDOL 0.5 MG TAB PO SCH ×2 (09:17→21:59)
[2018-02-22 09:50] LABS: Basophils % (A) 0 %; Eosinophils # (A) 0.1 k/uL (0-0.7); Eosinophils % (A) 1 %; HGB 10.3 gm/dL (11.4-16.0); Lymphocytes # (A) 1.1 k/uL (1.0-4.8); Lymphocytes % (A) 11 %; MCH 30.5 pg (25.0-35.0); MCHC 33.2 g/dL (31.0-37.0); MCV 91.8 fL (80.0-100.0); Mean Platelet Volume 6.1; Monocytes # (A) 0.5 k/uL (0-1.0); Monocytes % (A) 5 %; Neutrophils # (A) 7.8 k/uL (1.3-7.7); Neutrophils % (A) 80 %; Platelet Count 239 k/uL (150-450); RBC 3.38 m/uL (3.80-5.40); RDW 13.5 % (11.5-15.5); WBC 9.7 k/uL (3.8-10.6)
[2018-02-22 09:57] LABS: Calcium 8.9 mg/dL (8.4-10.2); Potassium 3.2 mmol/L (3.5-5.1)
[2018-02-22 10:59] LABS: T4, Free (Free Thyroxine) 2.16 ng/dL (0.78-2.19)
[2018-02-22 11:09] VITALS: BMI 30.1
[2018-02-22] MEDS ORDERED: LORazepam 0.5 MG TAB PO PRN (12:57)
[2018-02-22] MEDS ORDERED: VANCOMYCIN IV PER PHARMACY 1 EACH MISC MISCELLANE PRN (13:08)
[2018-02-22] MEDS ORDERED: HALOPERIDOL 1 MG TAB PO PRN (13:14)
[2018-02-22] MEDS ORDERED: VANCOMYCIN 1,500 MG in SODIUM CHLORIDE 0.9% 250 ML IVPB SCH (14:00)
[2018-02-22] MEDS: DEXTROSE 5%-0.9% NACL 1,000 ML IV SCH (14:04)
[2018-02-22] MEDS: LORazepam 0.5 MG TAB PO SCH (15:32)
--- NOTE | 2018-02-22 16:16 | ECHOF ---
Referral Reason:Chf MEASUREMENTS -------- HEIGHT: 160.0 cm WEIGHT: 79.4 kg BP: IVSd: 1.4 cm (0.6 - 1.1) LVIDd: 3.3 cm (3.9 - 5.3) LVPWd: 1.7 cm (0.6 - 1.1) IVSs: 1.7 cm LVIDs: 3.2 cm LVPWs: 1.5 cm Ao Diam: 3.5 cm (2.0 - 3.7) AV Cusp: 2.1 cm (1.5 - 2.6) LA Diam: 3.5 cm (2.7 - 3.8) MV EXCURSION: 14.382 mm (> 18.000) MV EF SLOPE: 90 mm/s (70 - 150) EPSS: 0.4 cm MV E Renard: 0.42 m/s MV DecT: 200 ms MV A Renard: 0.99 m/s MV E/A Ratio: 0.42 RAP: 5.00 mmHg RVSP: 45.50 mmHg FINDINGS -------- Sinus rhythm. This was a technically adequate study. The left ventricular size is normal. There is moderate concentric left ventricular hypertrophy. O verall left ventricular systolic function is normal with, an EF between 55 - 60 %. The right ventricle is normal in size. The left atrial size is normal. The right atrial size is normal. There is mild aortic valve sclerosis. There is no evidence of aortic regurgitation. Mild mitral annular calcification present. Mild mitral regurgitation is present. Mild tricuspid regurgitation present. There is mild to moderate pulmonary hypertension. The right ventricular systolic pressure, as measured by Doppler, is 45.50mmHg. There is no pulmonic regurgitation present. The aortic root size is normal. Echo free space may represent effusion or a pericardial fat pad. CONCLUSIONS -------- 1. Sinus rhythm. 2. The left ventricular size is normal. 3. There is moderate concentric left ventricular hypertrophy. 4. Overall left ventricular systolic function is normal with, an EF between 55 - 60 %. 5. The left atrial size is normal. 6. There is mild aortic valve sclerosis. 7. Mild mitral annular calcification present. 8. Mild mitral regurgitation is present. 9. Mild tricuspid regurgitation present. 10. There is mild to moderate pulmonary hypertension. 11. There is no pulmonic regurgitation present. 12. The aortic root size is normal. 13. Echo free space may represent effusion or a pericardial fat pad. CAMPAIGN ANALYST: Josey Carcamo RDCS
--- NOTE | 2018-02-22 16:22 | P.PN ---
Subjective Progress Note Date: 02/22/18 This is an 82-year-old pleasant lady patient of Dr. Lopez. She has underlying history of CAD post-PCI, hypertension, hypertensive cardio vascular disease, PAD chronic lymphedema peripheral neuropathy, admitted to the hospital secondary to increasing mental status changes, along with weakness, cellulitis of bilateral lower extrem. She was last admitted at [facility] on November 2017, for which seen by infectious disease pulmonary neurology at that time, she did receive some home health care needs at that time. Patient was brought in from home and was evaluated in the emergency room secondary to increasing confusion, increasing shortness of breath, minimal coughing, redness in the lower extremities, patient was slightly more delirious , and agitated, ER was concerned more about the mental status changes neurology was consulted consulted, psychiatry is also consulted as the family is worried about underlying psychosis against delirium and this has been a recurrent problem, over the past several years. During the last admission, November 2017 , patient was started on Desyrel 150 mg at bedtime, oral tapering dose, Lasix and Aldactone, Singulair and Pepcid. Patient also had chronic respiratory. Last TSH was 0.04 December 2017, hemoglobin 10.4, creatinine 0.8 insufficiency with significant right lower leg cellulitis on top of her lymphedema which is chronic. 02/22: Patient continues to have confusion, unable to answer questions. is at the bedside he states that normally she will have confusion at night however in the morning she will start to get better however he is feeling that she is doing worse than before. Patient was seen by psychiatric services with assessment of delirium secondary to multiple etiologies, panic disorder, bipolar disorder. Recommendations were to continue with Ativan and Haldol. Carotid Doppler shows mild to moderate plaque bilaterally. Review of systems: Unable to obtain due to patient's confusion. Objective - Vital Signs Vital signs: Vital Signs Temp 98.5 F 02/22/18 15:00 Pulse 98 02/22/18 15:00 Resp 16 02/22/18 15:00 BP 159/71 02/22/18 15:00 Pulse Ox 91 L 02/22/18 15:00 Intake & Output 02/21/18 02/22/18 02/22/18 18:59 06:59 18:59 Intake Total 540 Balance 540 Weight 77.111 kg 77.111 kg Intake: Intake, IV Titration 540 Amount Sodium Chloride 0.9% 1, 500 000 ml @ 100 mls/hr IV . Q10H STEPHEN Rx#:[id number] Sodium Chloride 0.9% 1, 40 000 ml @ 20 mls/hr IV . Q24H STEPHEN Rx#:[id number] Oral 0 Other: Voiding Method Toilet Toilet # Voids 1 1 2 - Constitutional General appearance: Present: average body habitus, no acute distress - EENT Eyes: Present: anicteric sclerae, EOMI, PERRLA ENT: Present: NA/AT - Neck Neck: Absent: lymphadenopathy - Respiratory Respiratory: bilateral: CTA, negative: diminished, dullness, rales, rhonchi, wheezing - Cardiovascular Rhythm: regular Heart sounds: normal: S1, S2 Abnormal Heart Sounds: Present: systolic murmur - Peripheral edema leg Peripheral Edema: right: 3+ (Warm to the touch and samm), left: 2+ - Gastrointestinal General gastrointestinal: Present: normal bowel sounds, soft. Absent: organomegaly - Integumentary Integumentary: Present: decreased turgor, pale - Neurologic Neurologic: Present: CNII-XII intact - Musculoskeletal Musculoskeletal: Present: generalized weakness, strength equal bilaterally - Psychiatric Psychiatric Comment(s): Patient is alert to self, at times will answer questions. - Labs CBC & Chem 7: 02/22/18 09:26 02/22/18 09:26 Labs: Abnormal Lab Results - Last 24 Hours (Table) 02/21/18 02/21/18 02/22/18 Range/Units 19:21 19:21 00:33 RBC (3.80-5.40) m/uL Hgb (11.4-16.0) gm/dL Hct (34.0-46.0) % Neutrophils # (1.3-7.7) k/uL Sodium (137-145) mmol/L Potassium (3.5-5.1) mmol/L Chloride (98-107) mmol/L Carbon Dioxide (22-30) mmol/L Glucose (74-99) mg/dL CK-MB (CK-2) 2.5 H 3.2 H (0.0-2.4) ng/mL HDL Cholesterol (40-60) mg/dL Vitamin B12 1308.0 H (200.0-944.0) pg/mL TSH (0.465-4.680) mIU/L 02/22/18 02/22/18 Range/Units 09:26 09:26 RBC 3.38 L (3.80-5.40) m/uL Hgb 10.3 L (11.4-16.0) gm/dL Hct 31.0 L (34.0-46.0) % Neutrophils # 7.8 H (1.3-7.7) k/uL Sodium 136 L (137-145) mmol/L Potassium 3.2 L (3.5-5.1) mmol/L Chloride 97 L (98-107) mmol/L Carbon Dioxide 31 H (22-30) mmol/L Glucose 103 H (74-99) mg/dL CK-MB (CK-2) (0.0-2.4) ng/mL HDL Cholesterol 66 H (40-60) mg/dL Vitamin B12 (200.0-944.0) pg/mL TSH 0.055 L (0.465-4.680) mIU/L Microbiology - Last 24 Hours (Table) 02/21/18 10:43 Urine Culture - Final Urine,Catheterized Assessment and Plan Plan: 1. Right more than left lower extremity cellulitis, with increasing lower extremity edema, more likely that his cellulitis versus chronic diastolic CHF, vancomycin 1500 mg daily. Venous Doppler shows no evidence of acute DVT in the right lower extremity. Consult infectious disease. #2 chronic diastolic CHF, Lasix changed to 40 mg daily will try to obtain echo at [facility] 11/2017 #3, CAD with prior PCI, on aspirin and Plavix Toprol-XL, Lipitor 40 #4 Recurrent hypercarbic respiratory failure secondary to COPD, underlying sleep apnea cannot be ruled out, follow with Dr. Rivero as an outpatient, #5 CK D stage III creatinine 1.1, avoid nephrotoxins #6 Impaired glucose tolerance, hemoglobin A1c will be obtained #7 PAD, chronic pain with chronic morphine use on morphine at home 10 mg every 6 hours, #8 Neuropathy, not on neuropathic pain medication except for pain control using morphine #9 Tobacco use with nicotine-induced disorder, nicotine patch daily #10 Hyperlipidemia on Lipitor 40 #11 Chronic anemia, from nutrition and I deficiency/anemia of chronic disease #12 Neurocognitive deficits with behaviors, also has chronic sleep disorder, is entertained, cannot be ruled out, on Seroquel changed to 100 mg at bedtime and 50 mg in the morning. Psychiatric recommendations reviewed. Lorazepam and Haldol changed to as needed basis. 200 mg at bedtime and 100 mg every morning, psychiatry to see for initial evaluation, also requires clonazepam 0.5 mg at bedtime, patient was on trazodone during the last admission at [facility], and currently has been discontinued prior to admission. 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 Yarelis Barnhart nurse practitioner acting as scribe for signing physician.
[2018-02-22] MEDS: HALOPERIDOL 0.5 MG TAB PO PRN ×2 (17:04→23:22)
[2018-02-22] MEDS: NICOTINE 21MG/24HR PATCH TRANSDERM SCH (17:04)
[2018-02-22 17:26] LABS: Hemoglobin A1C 5.9 % (4.0-6.0)
--- NOTE | 2018-02-22 19:05 | P.CNNES ---
History of Present Illness Consult date: 02/22/18 Requesting physician: Vazquez Ruffin Reason for Consult: Altered mental status Chief complaint: Altered mental status History of Present Illness: Neurology is consulting on a 82 year old female for altered mental status. Patient was brought to the ED evaluation secondary to increasing confusion, increasing shortness of breath, minimal cough, redness in the lower extremities. Patient with slightly more delirious and agitated from previous baseline. Patient was also experiencing more mental status changes. Neurology and psychology were consulted by the ED. Family expressed concern about underlying psychosis versus delirium which has been a recurrent problem over the past several years. During last admission in November 2017, patient was started on Desyrel and various other medications for psych related concerns as well as sleep. In November 2017 she was treated for right lower extremity cellulitis and lymphedema is chronic. Patient was originally admitted on through the ED. Upon review of other provider notations patient has been experiencing increased confusion and unable to answer questions. Family reports confusion at night however in the morning she was previously able to improve and feel better not to baseline. Patient has been evaluated by psychiatry. Recommendations were to continue with Ativan and Haldol. Carotid Doppler notes mild to moderate plaque bilaterally. Based on the suboptimal findings of the carotid Doppler, it does appear that a CT angio of the neck will need to be ordered. On contact, patient was extremely confused. Patient was resting in bed in no acute distress. Review of Systems systems not noted in HPI are negative Past Medical History Past Medical History: Coronary Artery Disease (CAD), Heart Failure, Hearing Disorder / Deafness, Hyperlipidemia, Hypertension, Vascular Disorder Additional Past Medical History / Comment(s): Home oxygen ATC, PAD, intermittent claudication bilateral legs, chronic edema R leg and occasionally in L leg, some numbness/tingling bilateral feet, MASHPEE bilaterally. History of Any Multi-Drug Resistant Organisms: None Reported Past Surgical History: Appendectomy, Section, Heart Catheterization, Heart Catheterization With Stent, Hysterectomy, Orthopedic Surgery, Tonsillectomy Additional Past Surgical History / Comment(s): PCI with stent, 2013 PTBA/iliac stents R/L common iliacs, AO with runoffs, L knee arthroscopy, colonoscopy, Past Anesthesia/Blood Transfusion Reactions: No Reported Reaction Date of Last Stent Placement:: 12-30-13 Smoking Status: Current every day smoker - Past Family History Sister(s) Family Medical History: Cancer (Pancreatic cancer breast cancer) Additional Family Medical History / Comment(s): SISTER PANCREATIC Brother(s) Family Medical History: Cancer Additional Family Medical History / Comment(s): Pt had 2 brothers with cancer. Mother Family Medical History: Coronary Artery Disease (CAD), Vascular Disorder Father Family Medical History: Diabetes Mellitus Medications and Allergies Home Medications Medication Instructions Recorded Confirmed Type Clopidogrel [Plavix] 75 mg PO DAILY #30 tab 02/04/14 02/21/18 Rx Aspirin [Adult Low Dose Aspirin EC] 81 mg PO DAILY 02/11/17 02/21/18 History Atorvastatin [Lipitor] 40 mg PO HS 02/21/18 02/21/18 History Budesonide [Pulmicort] 0.5 mg INHALATION RT-BID 02/21/18 02/21/18 History Cyanocobalamin (Vitamin B-12) 1,000 mcg PO DAILY 02/21/18 02/21/18 History [Vitamin B-12] Ipratropium Nebulized [Atrovent 0.5 mg INHALATION RT-Q4H PRN 02/21/18 02/21/18 History Nebulized] MORPHINE ORAL GARY 2mg/mL [Morphine 10 mg PO Q6H 02/21/18 02/21/18 History Oral Soln 2 MG/ML] Metoprolol Succinate [Toprol XL] 25 mg PO DAILY 02/21/18 02/21/18 History QUEtiapine [SEROquel] 100 mg PO QAM 02/21/18 02/21/18 History QUEtiapine [SEROquel] 200 mg PO HS 02/21/18 02/21/18 History clonazePAM [KlonoPIN] 0.5 mg PO HS 02/21/18 02/21/18 History Allergies Allergy/AdvReac Type Severity Reaction Status Date / Time No Known Allergies Allergy Verified 02/21/18 10:32 Physical Examination - Vital Signs Vital Signs: Vital Signs Temp Pulse Pulse Pulse Resp BP Pulse Ox 02/22/18 16:32 95 02/22/18 16:22 94 02/22/18 16:00 98 16 02/22/18 15:00 98.5 F 98 16 159/71 91 L 02/22/18 10:55 92 18 02/22/18 09:47 103 H 15 02/22/18 07:00 97.7 F 103 H 15 141/66 93 L 02/22/18 02:26 92 02/22/18 02:16 99.3 F 100 95 20 114/46 02/22/18 02:13 96 02/21/18 20:55 101 H 16 02/21/18 20:42 99 16 94 L 02/21/18 20:20 97.8 F 103 H 92 18 134/69 Intake and Output 02/22/18 02/22/18 02/22/18 06:59 14:59 22:59 Intake Total 540 Balance 540 Intake: Intake, IV Titration 540 Amount Sodium Chloride 0.9% 1, 500 000 ml @ 100 mls/hr IV . Q10H STEPHEN Rx#:[id number] Sodium Chloride 0.9% 1, 40 000 ml @ 20 mls/hr IV . Q24H STEPHEN Rx#:[id number] Other: Voiding Method Toilet Toilet # Voids 1 2 Weight 77.111 kg General appearance: Alert, no apparent distress. Head: Atraumatic, normocephalic, normal inspection Eyes: PERRLA, EOMI. Absent scleral icterus, conjunctival injection, nystagmus, periorbital swelling. Ear, nose and throat: Normal exam, mucous membranes moist Neck: Normal inspection, absent tenderness, lymphadenopathy. Respiratory: No increased work of breathing Cardiovascular: Regular rate, rhythm GI/abdominal: No guarding, no rigidity Extremities: moves all extremities, weak Neurological: cranial nerves II through XII intact no lateralizing weakness no seizure activity noted on physical exam no pronator drift and no nystagmus. Strength: weak in all 4 extremities Sensation: Left lower extremity: normal Right lower extremity: normal Left upper extremity: normal Right upper extremity:normal Psychological: Mood and Affect appropriate for setting Results - Laboratory Findings CBC and BMP: 02/22/18 09:26 02/22/18 09:26 Abnormal Lab Findings: Abnormal Labs 02/21/18 02/21/18 02/21/18 10:20 10:20 10:20 RBC 3.55 L Hgb 10.7 L Hct 32.9 L Neutrophils # APTT 21.5 L Sodium 134 L Potassium Chloride 96 L Carbon Dioxide 31 H Glucose 113 H POC Glucose (mg/dL) CK-MB (CK-2) HDL Cholesterol Vitamin B12 TSH Urine Opiates Screen U Tricyclic Antidepress 02/21/18 02/21/18 02/21/18 10:44 10:50 19:21 RBC Hgb Hct Neutrophils # APTT Sodium Potassium Chloride Carbon Dioxide Glucose POC Glucose (mg/dL) 125 H CK-MB (CK-2) HDL Cholesterol Vitamin B12 1308.0 H TSH Urine Opiates Screen Detected H U Tricyclic Antidepress Detected H 02/21/18 02/22/18 02/22/18 19:21 00:33 09:26 RBC Hgb Hct Neutrophils # APTT Sodium 136 L Potassium 3.2 L Chloride 97 L Carbon Dioxide 31 H Glucose 103 H POC Glucose (mg/dL) CK-MB (CK-2) 2.5 H 3.2 H HDL Cholesterol 66 H Vitamin B12 TSH 0.055 L Urine Opiates Screen U Tricyclic Antidepress 02/22/18 09:26 RBC 3.38 L Hgb 10.3 L Hct 31.0 L Neutrophils # 7.8 H APTT Sodium Potassium Chloride Carbon Dioxide Glucose POC Glucose (mg/dL) CK-MB (CK-2) HDL Cholesterol Vitamin B12 TSH Urine Opiates Screen U Tricyclic Antidepress Assessment and Plan (1) Metabolic encephalopathy Current Visit: Yes Status: Acute Code(s): G93.41 - METABOLIC ENCEPHALOPATHY SNOMED Code(s): 38034882 (2) Infectious encephalopathy Current Visit: Yes Status: Acute Code(s): G93.49 - OTHER ENCEPHALOPATHY; B99.9 - UNSPECIFIED INFECTIOUS DISEASE SNOMED Code(s): 35935347 (3) Altered mental status Current Visit: Yes Status: Acute Code(s): R41.82 - ALTERED MENTAL STATUS, UNSPECIFIED SNOMED Code(s): 734314740 Plan: Based on the patient's imaging, testing, laboratory blood work and symptoms, it does appear that the patient's current medical status is multifactorial in etiology including metabolic as well as infectious encephalopathy. Patient's CT of the brain noted no acute process, EEG is pending, carotid Doppler was suboptimal and CT angiogram of the neck is ordered and pending. At this time recommend correct correctable underlying etiology and continue to treat correctable underlying etiology at this time. Neurology will continue to follow and provide updates as needed or warranted. I have discussed the plan of care with the physician prior to implementation and he agrees with the plan as implemented.
[2018-02-22 19:59] VITALS: RESP 18
[2018-02-22] MEDS: ATORVASTATIN 40 MG TAB PO SCH (20:16)
[2018-02-22] MEDS: ceFAZolin IN SWFI 2 GM/20 ML SYRINGE IVP SCH (23:17)
[2018-02-23] MEDS: DEXTROSE 5%-0.9% NACL 1,000 ML IV SCH (04:11)
[2018-02-23 07:47] LABS: Basophils % (A) 0 %; Eosinophils % (A) 0 %; HCT 31.8 % (34.0-46.0); HGB 10.5 gm/dL (11.4-16.0); Lymphocytes # (A) 0.8 k/uL (1.0-4.8); Lymphocytes % (A) 7 %; MCH 30.7 pg (25.0-35.0); MCHC 32.9 g/dL (31.0-37.0); MCV 93.3 fL (80.0-100.0); Mean Platelet Volume 6.6; Monocytes # (A) 0.6 k/uL (0-1.0); Monocytes % (A) 5 %; Neutrophils # (A) 10.1 k/uL (1.3-7.7); Neutrophils % (A) 86 %; Platelet Count 248 k/uL (150-450); RBC 3.41 m/uL (3.80-5.40); RDW 13.5 % (11.5-15.5); WBC 11.7 k/uL (3.8-10.6)
--- NOTE | 2018-02-23 08:00 | CONS ---
CONSULTATION DATE OF SERVICE: 02/22/2018. REASON FOR CONSULTATION: Right lower extremity cellulitis. HISTORY OF PRESENT ILLNESS: The patient is an 82-year-old female, who was brought into the ER at [facility] on the with a chief complaint of mental status changes. who has been provided most of the history did mention the patient has been not acting appropriately. She continues to be confused with mental status changes, which apparently has been running a low-grade fever. However no nausea or vomiting has been noticed. Patient denies having any chest pain or shortness of breath, abdominal pain or any diarrhea. The patient noticed to have more swelling and redness of the right leg with concern for possible cellulitis. The patient was started on vancomycin and Infectious Disease was consulted for further recommendation regarding antibiotic therapy. Most of the information has been obtained from review of the chart and talking to the as the patient herself is unable to provide any reliable history. The patient did have a workup in the ER including Doppler that was negative for DVT and no high-grade fever has been recorded. The patient's white count normalized to 9.7, and her UA has been negative. REVIEW OF SYSTEMS: Could not be reliably obtained. The positive points have been mentioned in HPI. PAST MEDICAL HISTORY: Coronary artery disease, heart failure, hypertension, hyperlipidemia. PAST SURGICAL HISTORY: Appendectomy, , heart catheterization with stent, hysterectomy, tonsillectomy. SOCIAL HISTORY: Current everyday smoker. No drinking or drug use. FAMILY HISTORY: Sister with pancreatic cancer. Brother with history of cancer as well. Mother with history of coronary artery disease. ALLERGIES: No known drug allergies. MEDICATIONS: Currently include the patient is on: 1. Felton. 2. Aspirin. 3. Lipitor. 4. Pulmicort. 5. Plavix. 6. Lasix. 7. Haldol. 8. Ativan. 9. Toprol-XL. 10.Nicotine patch. 11.Vancomycin. 12.Seroquel. EXAMINATION: Blood pressure 135/77 with a pulse of 88, temperature 98.3, she is 94% on 4 L nasal cannula. GENERAL DESCRIPTION: An elderly female lying in bed in no distress. No tachypnea or accessory muscle of respiration use. HEENT: Shows pallor, no scleral icterus. Oral mucosa is dry. No pharyngeal erythema or thrush. NECK: Trachea central. No thyromegaly. LUNGS: Unlabored breathing. Clear to auscultation anteriorly. No wheeze or crackle. HEART: S1, S2. Regular rate and rhythm. ABDOMEN: Soft, no tenderness. EXTREMITIES: Right leg with more swelling and redness, slightly warm to touch. No skin breakdown. No drainage. NEUROLOGIC: The patient is awake, alert, oriented x3. Mood and affect normal. LABS: Hemoglobin is 10.3 with white count 9.7, BUN of 14, creatinine 0.75, potassium is 3.1. UA has been negative. Lower extremity Doppler was negative for DVT. DIAGNOSTIC IMPRESSION AND PLAN: Patient with acute right lower extremity swelling and redness with diffuse swelling and redness likely representing a cellulitis likely from a gram-positive skin neelima and more likely Staphylococcus disease. Clinically doubt MRSA infection. PLAN: 1. We will discontinue the vancomycin to decrease risk of nephrotoxicity. 2. Will start the patient on cefazolin 2 g every 8 hours. 3. Jeremy the area of the redness and apply Jeremiah wrap from just above to below the knee. 4. We will follow up on clinical condition and culture to further adjust medication if needed. Thank you for this consultation. Will follow this patient along with you. MMODL / IJN: [id number] /
[2018-02-23] MEDS: BUDESONIDE 0.5 MG/2 ML NEBU INHALATION SCH (08:22)
[2018-02-23 08:25] LABS: Anion Gap 10 mmol/L; Blood Urea Nitrogen 21 mg/dL (7-17); Carbon Dioxide 28 mmol/L (22-30); Chloride 101 mmol/L (98-107); Glucose 135 mg/dL (74-99); Sodium 139 mmol/L (137-145); Total Bilirubin 0.7 mg/dL (0.2-1.3); Total Protein 5.5 g/dL (6.3-8.2)
[2018-02-23 08:37] LABS: AST 37 U/L (14-36); Potassium 3.8 mmol/L (3.5-5.1)
[2018-02-23 08:38] LABS: ALT 32 U/L (9-52); Alkaline Phosphatase 60 U/L (38-126)
[2018-02-23] MEDS ORDERED: NICOTINE 21MG/24HR PATCH TRANSDERM SCH (09:00)
[2018-02-23] MEDS ORDERED: FUROSEMIDE 40 MG TAB PO SCH (09:00)
[2018-02-23] MEDS ORDERED: QUEtiapine 50 MG TAB PO SCH (09:00)
[2018-02-23 09:29] VITALS: BP 141/66; TEMP 99.1
[2018-02-23] MEDS: NICOTINE 21MG/24HR PATCH TRANSDERM SCH (09:30)
[2018-02-23] MEDS ORDERED: LORazepam 2 MG/ML INJ IM PRN (11:21)
[2018-02-23] MEDS ORDERED: MORPHINE SULFATE 2 MG/ML SYRINGE IVP PRN (11:26)
[2018-02-23] MEDS ORDERED: SCOPOLAMINE 1.5MG/72HR PATCH TRANSDERM PRN (11:27)
[2018-02-23] MEDS ORDERED: TETRAHYDROZOLINE 0.05% OPHTH DROPS 15 ML BTL BOTH EYES PRN (11:27)
[2018-02-23] MEDS ORDERED: LORazepam 1 MG TAB SUBLINGUAL PRN (11:29)
[2018-02-23] MEDS ORDERED: DRY MOUTH SPRAY 44.3 SPRAY/44.3 ML SPRAY MUCOUS MEM PRN (11:30)
[2018-02-23] MEDS ORDERED: ATROPINE OPHTH SOLN 1% 5ML BTL SUBLINGUAL PRN (11:30)
--- NOTE | 2018-02-23 11:47 | CT ---
EXAMINATION TYPE: CT brain wo con DATE OF EXAM: 02/23/2018 COMPARISON: 02/21/2018 HISTORY: Altered mental status changes CT DLP: 1319.[address] of the brain was performed. The ventricles, basal cisterns and sulci overlying the cerebral convexities demonstrate mild enlargem ent. There is no evidence for intracranial hemorrhage or sulcal effacement. There is decreased attenuation about the periventricular white matter and deep white matter of both c erebral hemispheres, compatible with chronic small vessel ischemia. Differential diagnosis does inclu de demyelination. No mass effects are seen.No midline shift. Osseous calvarium is intact. If symptoms persist consider MRI. IMPRESSION: 1. Age related atrophic and chronic small vessel ischemic change without acute intracranial process s een at this time.
[2018-02-23] MEDS: ceFAZolin IN SWFI 2 GM/20 ML SYRINGE IVP SCH (15:12)
[2018-02-23] MEDS: POTASSIUM CHLORIDE ER 20 MEQ TAB.ER PO SCH (15:13)
[2018-02-23] MEDS: CLOPIDOGREL 75 MG TAB PO SCH (15:13)
[2018-02-23] MEDS: METOPROLOL SUCCINATE (ER) 25 MG TAB.ER.24H PO SCH (15:13)
[2018-02-23] MEDS: ASPIRIN 81 MG PO SCH (15:13)
[2018-02-23] MEDS: CYANOCOBALAMIN 500 MCG TAB PO SCH (15:13)
--- NOTE | 2018-02-23 15:21 | P.PN ---
Subjective Progress Note Date: 02/23/18 Principal diagnosis: Altered Mental Status Neurology is follwoing on an 82 year old female for altered mental status. he was brought to the ED for evaluation secondary to increasing confusion, increasing shortness of breath, cough, redness in the lower extremities. Patient was slightly more delirious and agitated from previous baseline. Patient is also experiencing more mental status changes. Neurology and psychology were consulted by the ED. Family expressed concern about underlying psychosis versus delirium which has been a recurrent problem over the past several years. During last admission in November 2017, patient was started on Desyrel and various other medications for psych related concerns as well as sleep. In November 2017 she was treated for right lower extremity cellulitis and lymphedema which is chronic. Patient was originally admitted on 02/21/18 through the ED. Upon review of the other provider notations patient has been experiencing increased confusion and unable to answer questions. Family reports confusion at night however in the morning she was grossly able to improve and feel better not to baseline. Patient has been evaluated by psychiatry. Recommendations were to continue Ativan and Haldol. Carotid Doppler notes mild to moderate plaque bilaterally. Based on the suboptimal findings of the carotid Doppler, CT angiogram of the neck was ordered. CT angiogram is still pending. CT of the brain for repeat evaluation and comparative purposes is also still pending. EEG has been ordered and is still pending as well. Updated laboratory blood work noted increased WBCs which are trending upward at this time, increase BUN, increased AST. On contact today, patient was alert but oriented to person only. Patient was extremely confused, uttering gibberish, engaging in repetitive motions as if taking her pills, daughter was in the room and states that she has done this activity in the past when she gets extremely confused and the progressive nature as well. Discussed with daughter that we are currently awaiting updated imaging and testing for further decisions and recommendations. It is apparent that the patient has declined somewhat in the last 24 hours. Objective - Vital Signs Vital signs: Vital Signs Temp 99.1 F 02/23/18 09:28 Pulse 71 02/23/18 09:28 Resp 18 02/23/18 08:00 BP 141/66 02/23/18 09:28 Pulse Ox 84 L 02/23/18 09:28 Intake & Output 02/22/18 02/23/18 02/23/18 18:59 06:59 18:59 Intake Total 745 525 Balance 745 525 Weight 77.111 kg Intake: Intake, IV Titration 525 525 Amount Dextrose 5%-0.9% NaCl 1, 525 525 000 ml @ 75 mls/hr IV . [id number] Rx#:[id number] Oral 220 Other: Voiding Method Toilet Toilet # Voids 2 2 - Exam General appearance: Alert person only, no acute distress Head: Atraumatic, normocephalic, normal inspection Eyes: PERRLA, EOMI. Absent scleral icterus, conjunctival injection, nystagmus, periorbital swelling. Ear, nose and throat: Normal exam, mucous membranes moist Neck: Normal inspection, absent tenderness, lymphadenopathy. Respiratory: No increased work of breathing Cardiovascular: Regular rate, rhythm GI/abdominal: No guarding, no rigidity Extremities: moves all extremities Neurological: cranial nerves II through XII intactgrossly intact, unable to fully assess, patient cannot comply with verbal commands no lateralizing weaknessmoves all extremities appears to have no lateralizing weakness no seizure activity noted on physical exam no pronator drift and no nystagmus. Strength: full in all 4 extremitiesEaston visual observation, patient will not comply with physical assessment Sensation: unable to assess Psychological: extremely confused - Labs CBC & Chem 7: 02/23/18 06:58 02/23/18 06:58 Labs: Abnormal Lab Results - Last 24 Hours (Table) 02/23/18 02/23/18 Range/Units 06:58 06:58 WBC 11.7 H (3.8-10.6) k/uL RBC 3.41 L (3.80-5.40) m/uL Hgb 10.5 L (11.4-16.0) gm/dL Hct 31.8 L (34.0-46.0) % Neutrophils # 10.1 H (1.3-7.7) k/uL Lymphocytes # 0.8 L (1.0-4.8) k/uL BUN 21 H (7-17) mg/dL Glucose 135 H (74-99) mg/dL AST 37 H (14-36) U/L Total Protein 5.5 L (6.3-8.2) g/dL Albumin 3.0 L (3.5-5.0) g/dL Microbiology - Last 24 Hours (Table) 02/21/18 10:43 Urine Culture - Final Urine,Catheterized Assessment and Plan (1) Metabolic encephalopathy Current Visit: Yes Status: Acute Code(s): G93.41 - METABOLIC ENCEPHALOPATHY SNOMED Code(s): 72955533 (2) Infectious encephalopathy Current Visit: Yes Status: Acute Code(s): G93.49 - OTHER ENCEPHALOPATHY; B99.9 - UNSPECIFIED INFECTIOUS DISEASE SNOMED Code(s): 83846974 (3) Altered mental status Current Visit: Yes Status: Acute Code(s): R41.82 - ALTERED MENTAL STATUS, UNSPECIFIED SNOMED Code(s): 805456824 Plan: Based on the patient's imaging, testing, laboratory blood work and symptoms, it does appear that the patient's current medical status is multifactorial in etiology including metabolic as well as infectious encephalopathy. Patient's CT of the brain noted no acute process, EEG is pending, carotid Doppler was suboptimal and CT angiogram of the neck is ordered and pending. At this time recommend correct correctable underlying etiology and continue to treat correctable underlying etiology at this time. Neurology will continue to follow and provide updates as needed or warranted. I have discussed the plan of care with the physician prior to implementation and he agrees with the plan as implemented.
[2018-02-23] MEDS ORDERED: LORazepam 2 MG/ML INJ IV PRN (15:24)
--- NOTE | 2018-02-23 15:48 | P.PN ---
Subjective Progress Note Date: 02/23/18 This is an 82-year-old pleasant lady patient of Dr. Lopez. She has underlying history of CAD post-PCI, hypertension, hypertensive cardio vascular disease, PAD chronic lymphedema peripheral neuropathy, admitted to the hospital secondary to increasing mental status changes, along with weakness, cellulitis of bilateral lower extrem. She was last admitted at [facility] on November 2017, for which seen by infectious disease pulmonary neurology at that time, she did receive some home health care needs at that time. Patient was brought in from home and was evaluated in the emergency room secondary to increasing confusion, increasing shortness of breath, minimal coughing, redness in the lower extremities, patient was slightly more delirious , and agitated, ER was concerned more about the mental status changes neurology was consulted consulted, psychiatry is also consulted as the family is worried about underlying psychosis against delirium and this has been a recurrent problem, over the past several years. During the last admission, November 2017 , patient was started on Desyrel 150 mg at bedtime, oral tapering dose, Lasix and Aldactone, Singulair and Pepcid. Patient also had chronic respiratory. Last TSH was 0.04 December 2017, hemoglobin 10.4, creatinine 0.8 insufficiency with significant right lower leg cellulitis on top of her lymphedema which is chronic. 02/22: Patient continues to have confusion, unable to answer questions. is at the bedside he states that normally she will have confusion at night however in the morning she will start to get better however he is feeling that she is doing worse than before. Patient was seen by psychiatric services with assessment of delirium secondary to multiple etiologies, panic disorder, bipolar disorder. Recommendations were to continue with Ativan and Haldol. Carotid Doppler shows mild to moderate plaque bilaterally. 02/23: Patient continues to not improve. Pulse ox is 84% on 4 L and 87% on 6 L. Family does not want BiPAP. Spoke with family regarding comfort care and family was in agreement to move to comfort care and have hospice brought in. Patient was changed to a DO NOT RESUSCITATE. Review of systems: Unable to obtain due to patient's confusion. Objective - Vital Signs Vital signs: Vital Signs Temp 99.1 F 02/23/18 09:28 Pulse 71 02/23/18 09:28 Resp 18 02/23/18 08:00 BP 141/66 02/23/18 09:28 Pulse Ox 84 L 02/23/18 09:28 Intake & Output 02/22/18 02/23/18 02/23/18 18:59 06:59 18:59 Intake Total 745 525 Balance 745 525 Weight 77.111 kg Intake: Intake, IV Titration 525 525 Amount Dextrose 5%-0.9% NaCl 1, 525 525 000 ml @ 75 mls/hr IV . [id number] [facility] Rx#:[id number] Oral 220 Other: Voiding Method Toilet Toilet # Voids 2 2 - Constitutional General appearance: Present: average body habitus, no acute distress - EENT Eyes: Present: anicteric sclerae, EOMI, PERRLA ENT: Present: NA/AT - Neck Neck: Absent: lymphadenopathy - Respiratory Respiratory: bilateral: CTA, negative: diminished, dullness, rales, rhonchi, wheezing - Cardiovascular Rhythm: regular Heart sounds: normal: S1, S2 Abnormal Heart Sounds: Present: systolic murmur - Peripheral edema leg Peripheral Edema Comment(s): Right 3+ warm to touch and red and, left 2+ - Gastrointestinal General gastrointestinal: Present: normal bowel sounds, soft. Absent: organomegaly, tenderness - Integumentary Integumentary: Present: decreased turgor, pale - Neurologic Neurologic Comment(s): Patient responsive to stimuli. - Musculoskeletal Musculoskeletal: Present: generalized weakness, strength equal bilaterally - Psychiatric Psychiatric Comment(s): Patient is alert to self not answering any questions. - Labs CBC & Chem 7: 02/23/18 06:58 02/23/18 06:58 Labs: Abnormal Lab Results - Last 24 Hours (Table) 02/23/18 02/23/18 Range/Units 06:58 06:58 WBC 11.7 H (3.8-10.6) k/uL RBC 3.41 L (3.80-5.40) m/uL Hgb 10.5 L (11.4-16.0) gm/dL Hct 31.8 L (34.0-46.0) % Neutrophils # 10.1 H (1.3-7.7) k/uL Lymphocytes # 0.8 L (1.0-4.8) k/uL BUN 21 H (7-17) mg/dL Glucose 135 H (74-99) mg/dL AST 37 H (14-36) U/L Total Protein 5.5 L (6.3-8.2) g/dL Albumin 3.0 L (3.5-5.0) g/dL Microbiology - Last 24 Hours (Table) 02/21/18 10:43 Urine Culture - Final Urine,Catheterized Assessment and Plan Plan: 1. Right more than left lower extremity cellulitis, with increasing lower extremity edema, more likely that his cellulitis versus chronic diastolic CHF, patient has been changed to comfort care. Comfort care orders have been initiated. Ex pain S Beny's solution, dry mouth spray, Lasix 40 mg by mouth daily, Ativan 1 mg sublingual as needed, Ativan 1 mg IV as needed, morphine 2 mg as needed for pain, the scopolamine patch, temperature hydralazine 2 drops both eyes. #2 chronic diastolic CHF, Lasix changed to 40 mg daily #3, CAD with prior PCI, as noted above #4 Recurrent hypercarbic respiratory failure secondary to COPD, underlying sleep apnea as noted above as noted above #5 CK D stage III creatinine 1.1, avoid nephrotoxins #6 Impaired glucose tolerance, as noted above #7 PAD, chronic pain with chronic morphine use as noted above #8 Neuropathy, not on neuropathic pain medication except for pain control using morphine as noted above #9 Tobacco use with nicotine-induced disorder, as noted above #10 Hyperlipidemia as noted above #11 Chronic anemia, from nutrition and I deficiency/anemia of chronic disease as noted above #12 Neurocognitive deficits with behaviors, also has chronic sleep disorder, is entertained, cannot be ruled out, as noted above #13 recurrent altered mental status, recurrent as noted above #14 9 Treatment resistant depression, as noted above DVT prophylaxis GI prophylaxis Discharge plan: Hospice Impression and plan of care have been directed as dictated by the signing physician. Yarelis Barnhart nurse practitioner acting as scribe for signing physician.
[2018-02-23] MEDS: IPRATROPIUM 0.5 MG/2.5 ML NEBU INHALATION PRN (15:53)
[2018-02-23 16:50] VITALS: PULSE 71
--- NOTE | 2018-02-23 17:51 | CT ---
EXAMINATION TYPE: CT angio neck DATE OF EXAM: 02/23/2018 HISTORY: Abnormal and suboptimal carotid doppler COMPARISON: Carotid ultrasound dated 02/22/2018 CT DLP: 274.2 mGycm. Automated Exposure Control for Dose Reduction was Utilized. TECHNIQUE: CTA scan of the neck is performed with IV Contrast, patient injected with 65 mL of Isovue 370, axial images are obtained, coronal and sagittal reformatted images are reviewed. Three-D recons tructed images are created on an independent workstation and reviewed. FINDINGS: Carotid/Vascular Structures: There is a normal variant direct origin of the left vertebral artery fro m the aortic arch. Moderate amount of atherosclerotic calcific and noncalcific plaquing is seen of th e aortic arch and ostia of the great vessels. The common carotid arteries demonstrate no hemodynamica lly significant stenosis with minimal noncalcific atheromatous plaquing. At the carotid bulb there is a short segment approximately 50% stenosis on the right measuring 7 mm in length. On the left there is only a minute amount of nonhemodynamically significant calcific atheromatous change. Remaining vis ualized portions of the cervical internal carotid arteries are patent without stenosis. The basilar artery is unremarkable. Vertebral arteries are codominant. Vertebral arteries appear johnson nt throughout without hemodynamically significant stenosis. The main pulmonary artery appears upper l imits of normal in size but is only partially visualized. Other: Moderate centrilobular emphysematous changes are seen in the lung apices and upper lobes in th eir visualized portions. The thyroid gland is diffusely heterogenous with a large right thyroid nodul e measuring at least 2.7 cm. Thyroid ultrasound is recommended for further characterization. Moderate multilevel degenerative change of the cervical spine is seen. Visualized paranasal sinuses and masto id air cells are well aerated. There is partial visualization of sclerosis of the upper thoracic vert ebral body that could be related to degenerative disc disease. IMPRESSION: 1. No hemodynamically significant stenosis within the cervical carotid vasculature or vertebral arter ies. Approximately 50% short segment stenosis is seen of the right carotid bulb measuring a length of 7 mm. 2. Diffusely enlarged heterogenous thyroid gland with right thyroid lobe nodule measuring at least 2. 7 cm. Thyroid ultrasound is recommended for further characterization. 3. Partial visualization of sclerosis within the upper thoracic spine that could be on the basis of d egenerative disc disease although incompletely visualized. If there is further concern thoracic spine radiographs could be performed. 4. Moderate centrilobular emphysematous change.
== END 2018-02-23 16:47 | disposition hospice, inpatient (51) | DRG 602 ==
LOC: EC 09:52 → 4SSUR 12:41 → OBSVTOIN 02-23 16:15
PROVIDERS: ADMIT Family Medicine; ATTEND Family Medicine
DX: L03.115 Cellulitis of right lower limb (principal); G93.41 Metabolic encephalopathy; J96.92 Respiratory failure, unspecified with hypercapnia; F05 Delirium due to known physiological condition; I13.0 Hypertensive heart and chronic kidney disease with heart failure and stage 1 through stage 4 chronic kidney disease, or unspecified chronic kidney disease; L03.114 Cellulitis of left upper limb; I50.32 Chronic diastolic (congestive) heart failure; D63.8 Anemia in other chronic diseases classified elsewhere; E78.5 Hyperlipidemia, unspecified; F17.200 Nicotine dependence, unspecified, uncomplicated; F31.9 Bipolar disorder, unspecified; F41.0 Panic disorder [episodic paroxysmal anxiety]; G47.30 Sleep apnea, unspecified; G62.9 Polyneuropathy, unspecified; G89.29 Other chronic pain; H91.90 Unspecified hearing loss, unspecified ear; I25.10 Atherosclerotic heart disease of native coronary artery without angina pectoris; I73.9 Peripheral vascular disease, unspecified; I89.0 Lymphedema, not elsewhere classified; J44.9 Chronic obstructive pulmonary disease, unspecified; Z51.5 Encounter for palliative care; Z66 Do not resuscitate; Z79.02 Long term (current) use of antithrombotics/antiplatelets; Z79.82 Long term (current) use of aspirin; Z79.899 Other long term (current) drug therapy; Z80.0 Family history of malignant neoplasm of digestive organs; Z80.3 Family history of malignant neoplasm of breast; Z82.49 Family history of ischemic heart disease and other diseases of the circulatory system; Z83.3 Family history of diabetes mellitus; Z90.710 Acquired absence of both cervix and uterus; Z98.61 Coronary angioplasty status; N18.3 Chronic kidney disease, stage 3 (moderate); R73.02 Impaired glucose tolerance (oral)
CPT/HCPCS: 36415; 70450; 70498; 71046; 80048; 80053; 80061; 80306; 81003; 82140; 82550; 82553; 82607; 83036; 83880; 84439; 84443; 84484; 85025; 85610; 85730; 87086; 93306; 93880; 94640; 94760; 99285

== ENCOUNTER 2018-02-23 15:27 | Inpatient (IN) | payer MEDICAID ==
[2018-02-23] MEDS ORDERED: ACETAMINOPHEN SUPPOSITORY 650 MG SUPP RECTAL PRN (15:56)
[2018-02-23] MEDS ORDERED: SCOPOLAMINE 1.5MG/72HR PATCH TRANSDERM SCH (16:00)
[2018-02-23] MEDS ORDERED: TETRAHYDROZOLINE 0.05% OPHTH DROPS 15 ML BTL BOTH EYES PRN (16:06)
[2018-02-23] MEDS ORDERED: LORazepam 1 MG TAB SUBLINGUAL PRN (16:07)
[2018-02-23 18:12] VITALS: BMI 30.1
[2018-02-23] MEDS: IPRATROPIUM 0.5 MG/2.5 ML NEBU INHALATION PRN (21:06)
[2018-02-23] MEDS: MORPHINE SULFATE 2 MG/ML SYRINGE IVP PRN (22:42)
[2018-02-23] MEDS: LORazepam 2 MG/ML INJ IV PRN (23:36)
[2018-02-23] MEDS: ATROPINE OPHTH SOLN 1% 5ML BTL SUBLINGUAL PRN (23:51)
[2018-02-24] MEDS: MORPHINE SULFATE 2 MG/ML SYRINGE IVP PRN ×5 (02:25→22:07)
[2018-02-24] MEDS: IPRATROPIUM 0.5 MG/2.5 ML NEBU INHALATION PRN (03:45)
[2018-02-24] MEDS: LORazepam 2 MG/ML INJ IV PRN ×3 (05:15→14:56)
[2018-02-24] MEDS: ATROPINE OPHTH SOLN 1% 5ML BTL SUBLINGUAL PRN (08:20)
[2018-02-24] MEDS ORDERED: FUROSEMIDE 40 MG TAB PO SCH (09:00)
--- NOTE | 2018-02-24 10:43 | P.HPIM ---
History of Present Illness H&P Date: 02/24/18 This is an 82-year-old patient of Dr. Lopez. She has underlying history of CAD post-PCI, hypertension, hypertensive cardio vascular disease, PAD chronic lymphedema peripheral neuropathy, admitted to the hospital secondary to increasing mental status changes, along with weakness, cellulitis of bilateral lower extrem. She was last admitted at [facility] on November 2017, for which seen by infectious disease pulmonary neurology at that time, she did receive some home health care needs at that time. Patient was brought in from home and was evaluated in the emergency room secondary to increasing confusion, increasing shortness of breath, minimal coughing, redness in the lower extremities, patient was slightly more delirious, and agitated. Patient was admitted to the hospital started on IV antibiotics and seen in consultation by infectious disease. Patient was seen by psychiatric services with assessment of delirium secondary to multiple etiologies, panic disorder, bipolar disorder. Carotid Doppler shows mild to moderate plaque bilaterally. Unfortunately, patient's mental status did not improve and she developed acute hypoxic and hypercapnic respiratory failure with pulse ox 84% on 4 L and 87% on 6 L. Family does not want BiPAP. Spoke with family regarding comfort care and family was in agreement to move to comfort care and have hospice brought in. Patient was changed to a DO NOT RESUSCITATE. Patient is currently under inpatient [facility]. Review of Systems ROS unobtainable: due to mental status Past Medical History Past Medical History: Coronary Artery Disease (CAD), Heart Failure, Hearing Disorder / Deafness, Hyperlipidemia, Hypertension, Vascular Disorder Additional Past Medical History / Comment(s): Home oxygen ATC, PAD, intermittent claudication bilateral legs, chronic edema R leg and occasionally in L leg, some numbness/tingling bilateral feet, [id number] bilaterally. History of Any Multi-Drug Resistant Organisms: None Reported Past Surgical History: Appendectomy, Section, Heart Catheterization, Heart Catheterization With Stent, Hysterectomy, Orthopedic Surgery, Tonsillectomy Additional Past Surgical History / Comment(s): PCI with stent, 2013 PTBA/iliac stents R/L common iliacs, AO with runoffs, L knee arthroscopy, colonoscopy, Past Anesthesia/Blood Transfusion Reactions: No Reported Reaction Date of Last Stent Placement:: 12-30-13 Past Psychological History: Anxiety, Depression Additional Psychological History / Comment(s): Pt resides with her spouse. She has a cane/walker which she uses as needed. She no longer drives, her spouse takes her to appointments. She has home oxygen which she wears ATC. She has a nebulizer. Smoking Status: Current every day smoker Past Alcohol Use History: None Reported Additional Past Alcohol Use History / Comment(s): SMOKING 51 PLUS YEARS, DOWN TO 5 -10 CIGARETTES A DAY Past Drug Use History: None Reported - Past Family History Sister(s) Family Medical History: Cancer Additional Family Medical History / Comment(s): SISTER PANCREATIC Brother(s) Family Medical History: Cancer Additional Family Medical History / Comment(s): Pt had 2 brothers with cancer. Mother Family Medical History: Coronary Artery Disease (CAD), Vascular Disorder Father Family Medical History: Diabetes Mellitus Medications and Allergies Home Medications Medication Instructions Recorded Confirmed Type Clopidogrel [Plavix] 75 mg PO DAILY #30 tab 02/04/14 02/23/18 Rx Aspirin [Adult Low Dose Aspirin EC] 81 mg PO DAILY 02/11/17 02/23/18 History Atorvastatin [Lipitor] 40 mg PO HS 02/21/18 02/23/18 History Budesonide [Pulmicort] 0.5 mg INHALATION RT-BID 02/21/18 02/23/18 History Cyanocobalamin (Vitamin B-12) 1,000 mcg PO DAILY 02/21/18 02/23/18 History [Vitamin B-12] Ipratropium Nebulized [Atrovent 0.5 mg INHALATION RT-Q4H PRN 02/21/18 02/23/18 History Nebulized] MORPHINE ORAL GARY 2mg/mL [Morphine 10 mg PO Q6H 02/21/18 02/23/18 History Oral Soln 2 MG/ML] Metoprolol Succinate [Toprol XL] 25 mg PO DAILY 02/21/18 02/23/18 History QUEtiapine [SEROquel] 100 mg PO QAM 02/21/18 02/23/18 History QUEtiapine [SEROquel] 200 mg PO HS 02/21/18 02/23/18 History clonazePAM [KlonoPIN] 0.5 mg PO HS 02/21/18 02/23/18 History Allergies Allergy/AdvReac Type Severity Reaction Status Date / Time No Known Allergies Allergy Verified 02/23/18 17:10 Physical Exam Vitals: Vital Signs Temp Pulse Pulse Resp BP Pulse Ox 02/24/18 08:24 45 H 02/24/18 07:45 97.4 F L 85 45 H 105/62 85 L 02/24/18 03:56 76 02/24/18 03:45 73 02/24/18 01:00 83 44 H 119/56 94 L 02/23/18 22:14 84 44 H 97 02/23/18 21:05 88 02/23/18 20:56 88 Intake and Output 02/23/18 02/24/18 02/24/18 22:59 06:59 14:59 Intake Total 100 Balance 100 Intake: Oral 100 Other: Voiding Method Incontinent Incontinent # Voids 1 Weight 77.11 kg General appearance: Present: average body habitus, no acute distress - EENT Eyes: Present: anicteric sclerae, EOMI, PERRLA ENT: Present: NA/AT - Neck Neck: Absent: lymphadenopathy - Respiratory Respiratory: bilateral: CTA, negative: diminished, dullness, rales, rhonchi, wheezing - Cardiovascular Rhythm: regular Heart sounds: normal: S1, S2 Abnormal Heart Sounds: Present: systolic murmur - Peripheral edema leg Peripheral Edema Comment(s): Right 3+ warm to touch and red and, left 2+ - Gastrointestinal General gastrointestinal: Present: normal bowel sounds, soft. Absent: organomegaly, tenderness - Integumentary Integumentary: Present: decreased turgor, pale - Neurologic Neurologic Comment(s): Patient responsive to stimuli. - Musculoskeletal Musculoskeletal: Present: generalized weakness, strength equal bilaterally - Psychiatric Psychiatric Comment(s): Patient is unresponsive. Thrombosis Risk Factor Assmnt - Choose All That Apply Any of the Below Risk Factors Present?: No Other Risk Factors: Yes Each Risk Factor Represents 3 Points: Age 75 years or older Thrombosis Risk Factor Assessment Total Risk Factor Score: 3 Thrombosis Risk Factor Assessment Level: Moderate Risk Assessment and Plan Plan: 1. Acute hypercarbic and hypoxic respiratory failure secondary to COPD, underlying sleep apnea with metabolic encephalopathy 2. Chronic diastolic heart failure 3. CAD with prior PCI 4. Right more than left lower extremity cellulitis 5. CKD stage III 6. Impaired glucose tolerance, as noted above 7. PAD, chronic pain with chronic morphine use 8. Neuropathy 9. Tobacco use and dependence 10. Hyperlipidemia 11. Chronic anemia, from nutrition and I deficiency/anemia of chronic disease 12. Neurocognitive deficits with behaviors, also has chronic sleep disorder 13. Recurrent depression Discharge plan: [facility] Impression and plan of care have been directed as dictated by the signing physician. Lourdes Wu nurse practitioner acting as scribe for signing physician.
[2018-02-25] MEDS: MORPHINE SULFATE 2 MG/ML SYRINGE IVP PRN ×2 (05:16→09:49)
[2018-02-25] MEDS: LORazepam 2 MG/ML INJ IV PRN (07:12)
[2018-02-25] MEDS: ATROPINE OPHTH SOLN 1% 5ML BTL SUBLINGUAL PRN ×2 (09:53→21:39)
[2018-02-25] MEDS ORDERED: MORPHINE SULFATE (100 MG/2 ML) 100 MG in SODIUM CHLORIDE 0.9% 100 ML IV SCH (13:00)
[2018-02-25 22:24] VITALS: BP 75/46; PULSE 96; TEMP 97.8
[2018-02-26 01:37] VITALS: RESP 10
== END 2018-02-26 02:45 | disposition expired | DRG 951 ==
LOC: 4SSUR 16:49
PROVIDERS: ADMIT Internal Medicine; ATTEND Internal Medicine
DX: Z51.5 Encounter for palliative care (principal); G93.41 Metabolic encephalopathy; J96.01 Acute respiratory failure with hypoxia; J96.02 Acute respiratory failure with hypercapnia; F05 Delirium due to known physiological condition; F33.9 Major depressive disorder, recurrent, unspecified; I13.0 Hypertensive heart and chronic kidney disease with heart failure and stage 1 through stage 4 chronic kidney disease, or unspecified chronic kidney disease; I50.32 Chronic diastolic (congestive) heart failure; L03.116 Cellulitis of left lower limb; L03.115 Cellulitis of right lower limb; J44.9 Chronic obstructive pulmonary disease, unspecified; G62.9 Polyneuropathy, unspecified; I73.9 Peripheral vascular disease, unspecified; D63.8 Anemia in other chronic diseases classified elsewhere; N18.3 Chronic kidney disease, stage 3 (moderate); E78.5 Hyperlipidemia, unspecified; F17.210 Nicotine dependence, cigarettes, uncomplicated; F41.0 Panic disorder [episodic paroxysmal anxiety]; G47.30 Sleep apnea, unspecified; G89.29 Other chronic pain; H91.90 Unspecified hearing loss, unspecified ear; I25.10 Atherosclerotic heart disease of native coronary artery without angina pectoris; I89.0 Lymphedema, not elsewhere classified; R73.02 Impaired glucose tolerance (oral); R32 Unspecified urinary incontinence; Z66 Do not resuscitate; Z79.02 Long term (current) use of antithrombotics/antiplatelets; Z79.82 Long term (current) use of aspirin; Z79.899 Other long term (current) drug therapy; Z99.81 Dependence on supplemental oxygen; Z98.61 Coronary angioplasty status; Z90.710 Acquired absence of both cervix and uterus; Z90.49 Acquired absence of other specified parts of digestive tract; Z83.3 Family history of diabetes mellitus; Z82.49 Family history of ischemic heart disease and other diseases of the circulatory system
CPT/HCPCS: 94640